=== PATIENT | female | born 1930 | race African-American/Black ===

== ENCOUNTER 2017-11-06 19:03 | Emergency (ER) | payer SELFPAY ==
--- NOTE | 2017-11-06 19:55 | PDOC ---
Rapid Medical Evaluation Time Seen by Provider: 11/06/17 19:46 Medical Evaluation: Allergies Allergy/AdvReac Type Severity Reaction Status Date / Time No Known Allergies Allergy Verified 11/30/13 12:53 I have performed a brief in-person evaluation of this patient. The patient presents with a chief complaint of: low back pain, b/l shoulder pain for years. chronic pain that has worsened. Son also admits to increased dementia symptoms. Pertinent physical exam findings: patient appears very sleepy. I have ordered the following: UA/culture, labs The patient will proceed to the ED for further evaluation.
[2017-11-06 19:58] VITALS: TEMP 98.3; BMI 32.9
[2017-11-06 20:23] LABS: BASO % 0.5 % (0-2.0); EOS % 6.2 % (0-4.5); HEMOGLOBIN 12.2 GM/dL (10.7-15.3); LYMPH % 23.2 % (8-40); MCHC 34.8 g/dl (32.0-36.0); MEAN CELL VOLUME 83.3 fl (80-96); MEAN PLT VOLUME 9.5 fl (7.5-11.1); MONO % 11.9 % (3.8-10.2); NEUT % 58.2 % (42.8-82.8); PLATELET COUNT 259 K/MM3 (134-434); RDW 14.7 % (11.6-15.6); WHITE BLOOD COUNT 6.8 K/mm3 (4.0-10.0)
[2017-11-06 21:00] LABS: ANION GAP 4 (8-16); BILIRUBIN,TOTAL 0.2 mg/dL (0.2-1.0); BLOOD UREA NITROGEN 39 mg/dL (7-18); CALCIUM 9.3 mg/dL (8.5-10.1); CHLORIDE 114 mmol/L (98-107); CO2 27 mmol/L (21-32); GLUCOSE,RANDOM 97 mg/dL (74-106); MAGNESIUM 2.9 mg/dL (1.8-2.4); POTASSIUM 4.8 mmol/L (3.5-5.1); SGOT/AST 40 U/L (15-37); SGPT/ALT 28 U/L (12-78); SODIUM 145 mmol/L (136-145)
[2017-11-06 21:01] LABS: ALK PHOS 182 U/L (45-117)
[2017-11-06 21:13] VITALS: BP 154/80; PULSE 67
[2017-11-06 21:19] LABS: URINE APPEARANCE CLEAR; URINE BILIRUBIN NEGATIVE (<2.0 mg/dL); URINE BLOOD 1+ (NEGATIVE); URINE COLOR STRAW; URINE GLUCOSE (UA) NEGATIVE (NEGATIVE); URINE KETONE NEGATIVE (NEGATIVE); URINE LEUK ESTERASE 1+ (NEGATIVE); URINE NITRITE NEGATIVE (NEGATIVE); URINE PROTEIN 1+ (NEGATIVE); URINE UROBILINOGEN NEGATIVE mg/dL (0.2-1.0)
[2017-11-06 21:26] LABS: EPI CELLS RARE /HPF (FEW)
--- NOTE | 2017-11-06 21:45 | PDOC ---
History of Present Illness - General History Source: Patient, Family Exam Limitations: No Limitations - History of Present Illness Initial Comments: The patient is an 87 year old female, accompanied with her son, with a significant past medical history of arthritis, HTN, and Alzheimer's, and increasing dementia who presents to the emergency department for evaluation of shoulder, lower back, knee, and ankle pain and vaginal discomfort. The patients family member reports the patient has had episodes of chronic pain in the aforementioned areas. The patient reports they have not been to a PCP for a long period of time. The patient reports associated symptom of headache. The patient denies chest pain, shortness of breath, and dizziness.The patients family member denies fevers, chills, nausea, vomiting, diarrhea, and constipation. Allergies: NKA Past surgical history: No record. Social history: Former smoker. No reported alcohol or drug use. <Hany Lloyd - Last Filed: 11/06/17 21:49> <Zenaida De Anda - Last Filed: 11/06/17 22:09> - General Chief Complaint: Pain Stated Complaint: PAIN Time Seen by Provider: 11/06/17 19:46 Past History <Hany Lloyd - Last Filed: 11/06/17 21:49> - Past Medical History CVA: Yes COPD: No Dementia: Yes (Alzheimer's) HTN: Yes Hypercholesterolemia: Yes Other medical history: Blind - Suicide/Smoking/Psychosocial Hx Smoking History: Never smoked Have you smoked in the past 12 months: No If you are a former smoker, when did you quit?: 30 yrs Information on smoking cessation initiated: No Hx Alcohol Use: No Drug/Substance Use Hx: No Substance Use Type: None Hx Substance Use Treatment: No <Zenaida De Anda - Last Filed: 11/06/17 22:09> - Past Medical History Allergies/Adverse Reactions: Allergies Allergy/AdvReac Type Severity Reaction Status Date / Time No Known Allergies Allergy Verified 11/06/17 19:54 Home Medications: Ambulatory Orders Aspirin [ASA -] 81 mg PO DAILY 11/30/13 Amlodipine Besylate [Norvasc -] 10 mg PO DAILY #30 tablet 12/02/13 Atorvastatin Ca [Lipitor -] 10 mg PO HS #30 tablet 12/02/13 Esr,Crp 12/02/13 Lipid 12/02/13 Meclizine HCl [Antivert -] 25 mg PO Q6H PRN #30 tablet 12/02/13 Review of Systems - Review of Systems Able to Perform ROS?: Yes Comments:: CONSTITUTIONAL: Absent: fever, chills, diaphoresis, generalized weakness, malaise, loss of appetite HEENT: Absent: rhinorrhea, nasal congestion, throat pain, throat swelling, difficulty swallowing, mouth swelling, ear pain, eye pain, visual Changes CARDIOVASCULAR: Absent: chest pain, syncope, palpitations, irregular heart rate, lightheadedness , peripheral edema RESPIRATORY: Absent: cough, shortness of breath, dyspnea with exertion, orthopnea, wheezing, stridor, hemoptysis GASTROINTESTINAL: Absent: abdominal pain, abdominal distension, nausea, vomiting, diarrhea, constipation, melena, hematochezia GENITOURINARY: Absent: dysuria, frequency, urgency, hesitancy, hematuria, flank pain, genital pain MUSCULOSKELETAL: (+)Back pain. (+)Shoulder pain. (+)Knee pain. (+)Ankle pain. Absent: myalgia, joint swelling SKIN: Absent: rash, itching, pallor HEMATOLOGIC/IMMUNOLOGIC: Absent: easy bleeding, easy bruising, lymphadenopathy, frequent infections ENDOCRINE: Absent: unexplained weight gain, unexplained weight loss, heat intolerance, cold intolerance NEUROLOGIC: Absent: headache, focal weakness or paresthesias, dizziness, seizure. PSYCHIATRIC: Absent: anxiety, depression, suicidal or homicidal ideation, hallucinations. <Hany Lloyd - Last Filed: 11/06/17 21:49> *Physical Exam - Vital Signs Last Vital Signs Temp Pulse Resp BP Pulse Ox 98.3 F 67 20 154/80 100 11/06/17 19:55 11/06/17 21:12 11/06/17 21:12 11/06/17 21:12 11/06/17 21:12 - Physical Exam Comments: GENERAL: Well developed, well nourished. No acute distress. HEENT: Normocephalic, atraumatic. PERRLA, EOMI. No conjunctival pallor. Sclera are non- icteric. NECK: Supple. Full ROM. No JVD. Carotid pulses 2+ and symmetric, without bruits. No thyromegaly. No lymphadenopathy. CARDIOVASCULAR: Regular rate and rhythm. No murmurs, rubs, or gallops. Distal pulses are 2+ and symmetric. PULMONARY: No evidence of respiratory distress. Lungs clear to auscultation bilaterally. No wheezing, rales or rhonchi. ABDOMINAL: Soft. Non-tender. Non-distended. No rebound or guarding. No organomegaly. Normoactive bowel sounds. MUSCULOSKELETAL Normal range of motion at all joints. No bony deformities or tenderness. No CVA tenderness. EXTREMITIES: (+)Pedal edema. No cyanosis. No clubbing. No calf tenderness. SKIN: Warm and dry. Normal capillary refill. No rashes. No jaundice. NEUROLOGICAL: Alert, awake, appropriate. Cranial nerves 2-12 intact. No deficits to light touch and temperature in face, upper extremities and lower extremities. No motor deficits in the in face, upper extremities and lower extremities. Normoreflexic in the upper and lower extremities. PSYCHIATRIC: Cooperative. Good eye contact. Appropriate mood and affect. PELVIC EXAM- External genitalia normal without lesions. Vaginal vault is clear without blood or discharge. Cervix is long and closed. No cervical motion tenderness. Uterus is nontender and normal in size. Adnexa are nontender and without masses <Hany Lloyd - Last Filed: 11/06/17 21:49> - Vital Signs Last Vital Signs Temp Pulse Resp BP Pulse Ox 98.3 F 67 20 154/80 100 11/06/17 19:55 11/06/17 21:12 11/06/17 21:12 11/06/17 21:12 11/06/17 21:12 <Zenaida De Anda - Last Filed: 11/06/17 22:09> ED Treatment Course - LABORATORY CBC & Chemistry Diagram: 11/06/17 20:15 11/06/17 20:15 - ADDITIONAL ORDERS Additional order review: Laboratory Results 11/06/17 11/06/17 21:05 20:15 Sodium 145 Potassium 4.8 Chloride 114 H Carbon Dioxide 27 Anion Gap 4 L BUN 39 H Creatinine 3.0 H Creat Clearance w eGFR 14.83 Random Glucose 97 Calcium 9.3 Magnesium 2.9 H Total Bilirubin 0.2 D AST 40 H ALT 28 Alkaline Phosphatase 182 H Total Protein 8.0 Albumin 4.0 Urine Color Straw Urine Appearance Clear Urine pH 8.0 D Ur Specific [place] 1.009 Urine Protein 1+ H Urine Glucose (UA) Negative Urine Ketones Negative Urine Blood 1+ H Urine Nitrite Negative Urine Bilirubin Negative Urine Urobilinogen Negative Ur Leukocyte Esterase 1+ H Urine WBC (Auto) <1 Urine RBC (Auto) <1 Ur Epithelial Cells Rare 11/06/17 20:15 RBC 4.20 MCV 83.3 MCHC 34.8 RDW 14.7 MPV 9.5 Neutrophils % 58.2 D Lymphocytes % 23.2 D Monocytes % 11.9 H Eosinophils % 6.2 H Basophils % 0.5 <Hany Lloyd - Last Filed: 11/06/17 21:49> - LABORATORY CBC & Chemistry Diagram: 11/06/17 20:15 11/06/17 20:15 - ADDITIONAL ORDERS Additional order review: Laboratory Results 11/06/17 11/06/17 21:05 20:15 Sodium 145 Potassium 4.8 Chloride 114 H Carbon Dioxide 27 Anion Gap 4 L BUN 39 H Creatinine 3.0 H Creat Clearance w eGFR 14.83 Random Glucose 97 Calcium 9.3 Magnesium 2.9 H Total Bilirubin 0.2 D AST 40 H ALT 28 Alkaline Phosphatase 182 H Total Protein 8.0 Albumin 4.0 Urine Color Straw Urine Appearance Clear Urine pH 8.0 D Ur Specific [place] 1.009 Urine Protein 1+ H Urine Glucose (UA) Negative Urine Ketones Negative Urine Blood 1+ H Urine Nitrite Negative Urine Bilirubin Negative Urine Urobilinogen Negative Ur Leukocyte Esterase 1+ H Urine WBC (Auto) <1 Urine RBC (Auto) <1 Ur Epithelial Cells Rare 11/06/17 20:15 RBC 4.20 MCV 83.3 MCHC 34.8 RDW 14.7 MPV 9.5 Neutrophils % 58.2 D Lymphocytes % 23.2 D Monocytes % 11.9 H Eosinophils % 6.2 H Basophils % 0.5 <Zenaida De Anda - Last Filed: 11/06/17 22:09> Medical Decision Making - Medical Decision Making 11/06/17 21:55 87-year-old female brought in by her son for worsening dementia, joint pain involving her back, shoulders, her knees or ankles that's brrn chronic -Is also concerned about some vaginal yeast infection because of the patient's complaints of dysuria Past surgical history-. 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 CBC was reviewed leukocytosis and no anemia chemistry reviewed all the electrolytes are within normal limits and the exception is her bun of 39. her creatinine of 3 and she already has a history of chronic renal insufficiency. urinalysis was negative for any infection Impression chronic joint pain, dementia, chronic renal insufficiency Plan Given Copies of the Patient's Labs and Discharged Patient Home <Zenaida De Anda - Last Filed: 11/06/17 22:09> *DC/Admit/Observation/Transfer - Attestations Scribe Attestion: Documentation prepared by Hany Lloyd, acting as manager medical writing for Zenaida De Anda MD. <Hany Lloyd - Last Filed: 11/06/17 21:49> <Zenaida De Anda - Last Filed: 11/06/17 22:09> Diagnosis at time of Disposition: Chronic joint pain Dementia Qualifiers: Dementia type: unspecified type Dementia behavioral disturbance: without behavioral disturbance Qualified Code(s): F03.90 - Unspecified dementia without behavioral disturbance Chronic renal insufficiency Qualifiers: Chronic kidney disease stage: unspecified stage Qualified Code(s): N18.9 - Chronic kidney disease, unspecified Hypertension Qualifiers: Hypertension type: unspecified Qualified Code(s): I10 - Essential (primary) hypertension - Discharge Dispostion Disposition: HOME Condition at time of disposition: Stable - Referrals Referrals: Luz Maria Dugan [Staff Physician] - Manuel Luna MD [Staff Physician] - Juliann Virgen MD [Staff Physician] - - Patient Instructions Printed Discharge Instructions: DI for Kidney Failure, DI for High Blood Pressure, DI for Alzheimer's Disease, DI for Joint Pain Additional Instructions: please followup with your kidney doctor and you also need a regular physician to help with her dementia
[2017-11-06] MEDS ORDERED: FLUCONAZOLE 100 MG TABLET (UD) PO ONE (21:46)
[2017-11-06] MEDS ORDERED: FLUCONAZOLE 100 MG TABLET (UD) ONE (21:48)
[2017-11-06] MEDS ORDERED: ACETAMINOPHEN 500 MG TABLET (FP) PO STA (22:19)
[2017-11-06] MEDS ORDERED: ACETAMINOPHEN 325 MG TABLET (FP) ONE (22:19)
== END 2017-11-06 22:13 | disposition home or self-care (01) ==
LOC: JER 19:03
DX: M54.5 Low back pain (principal); M25.511 Pain in right shoulder; M25.512 Pain in left shoulder; M25.561 Pain in right knee; M25.562 Pain in left knee; I12.9 Hypertensive chronic kidney disease with stage 1 through stage 4 chronic kidney disease, or unspecified chronic kidney disease; N18.9 Chronic kidney disease, unspecified; G30.8 Other Alzheimer's disease; F02.80 Dementia in other diseases classified elsewhere, unspecified severity, without behavioral disturbance, psychotic disturbance, mood disturbance, and anxiety; M12.9 Arthropathy, unspecified
CPT/HCPCS: 36415; 80053; 81003; 81015; 83735; 85025; 87086; 99283-25

== ENCOUNTER 2020-08-29 13:32 | Inpatient (IN) | payer OTHER ==
[2020-08-29 13:51] VITALS: BMI 23.1
[2020-08-29 14:03] LABS: BASO % 0.2 % (0-2.0); EOS % 0.9 % (0-4.5); HEMATOCRIT 36.9 % (32.4-45.2); HEMOGLOBIN 11.8 GM/dL (10.7-15.3); LYMPH % 10.6 % (8-40); MCH 27.6 pg (25.7-33.7); MCHC 31.9 g/dl (32.0-36.0); MEAN CELL VOLUME 86.6 fl (80-96); MEAN PLT VOLUME 12.3 fl (7.5-11.1); MONO % 7.6 % (3.8-10.2); NEUT % 80.7 % (42.8-82.8); PLATELET COUNT 109 K/MM3 (134-434); RBC 4.26 M/mm3 (3.60-5.2); RDW 16.7 % (11.6-15.6); WHITE BLOOD COUNT 25.6 K/mm3 (4.0-10.0)
[2020-08-29 14:04] LABS: VENOUS BASE EXCESS -8.4 mmol/L (-2-2); VENOUS O2 SATURATION 51.7 % (70-80); VENOUS PCO2 48.7 mmHg (38-52); VENOUS PH 7.216 (7.310-7.410)
[2020-08-29 14:09] LABS: INR 0.97 (0.83-1.09); PROTHROMBIN TIME (PATIENT) 11.7 SEC (9.7-13.0)
[2020-08-29 14:11] LABS: ACTIVATED PTT 29.4 SECONDS (25.2-36.5)
[2020-08-29 14:30] LABS: CALCIUM 9.2 mg/dL (8.5-10.1)
[2020-08-29 14:31] LABS: ALBUMIN 2.9 g/dl (3.4-5.0)
[2020-08-29 14:36] LABS: BILIRUBIN,TOTAL 0.4 mg/dL (0.2-1); TOT PROT 7.8 g/dl (6.4-8.2)
[2020-08-29 14:43] LABS: BLOOD UREA NITROGEN 215.3 mg/dL (7-18); CREATININE 14.8 mg/dL (0.55-1.3); POTASSIUM 6.9 mmol/L (3.5-5.1)
[2020-08-29] MEDS ORDERED: LACTATED RINGERS SOLUTION 1000 ML INFUS.BAG IV ONE (14:46)
[2020-08-29 15:19] LABS: BILIRUBIN,DIRECT 0.1 mg/dL (0.0-0.2)
[2020-08-29 15:34] LABS: ARTERIAL BLD GAS O2 SATURATION 99.7 mmHg (95-98); ARTERIAL BLOOD GAS BASE EXCESS -7.6 mmol/L (-2-2); ARTERIAL BLOOD GAS PO2 338.2 mmHg (80-100); ARTERIAL BLOOD GAS pH 7.348 (7.350-7.450)
[2020-08-29 15:35] LABS: ALLENS TEST POSITIVE
[2020-08-29] MEDS ORDERED: SODIUM CHLORIDE 0.9% 500 ML INFUS.BAG IV ONE (15:37)
[2020-08-29 16:05] LABS: EPI CELLS 26 /uL (0-25.1); HYALINE CASTS 1 /uL (0-3.1); URINE APPEARANCE CLEAR; URINE BACTERIA 150 /uL (0-1359); URINE BILIRUBIN NEGATIVE (NEGATIVE); URINE COLOR DK YELLOW; URINE GLUCOSE (UA) NEGATIVE (NEGATIVE); URINE KETONE TRACE (NEGATIVE); URINE LEUK ESTERASE TRACE (NEGATIVE); URINE NITRITE NEGATIVE (NEGATIVE); URINE PROTEIN 1+ (NEGATIVE); URINE RBC 16 /uL (0-23.9); URINE UROBILINOGEN 0.2 mg/dL (0.2-1.0); URINE WBC 11 /uL (0-25.8)
[2020-08-29 18:03] LABS: PLATELET ESTIMATE DECREASED
[2020-08-29 18:16] LABS: CALCIUM 8.6 mg/dL (8.5-10.1); POTASSIUM 5.6 mmol/L (3.5-5.1)
[2020-08-29 18:17] LABS: CREATININE 14.1 mg/dL (0.55-1.3)
[2020-08-29] MEDS ORDERED: LACTATED RINGERS SOLUTION 1,000 ML/1,000 ML INFUS.BAG IV SCH (18:30)
[2020-08-29] MEDS ORDERED: DEXTROSE 5%-WATER - 1,000 ML IV SCH (18:45)
[2020-08-29] MEDS ORDERED: SODIUM CHLORIDE 0.45% 1,000 ML IV SCH (18:45)
[2020-08-29] MEDS ORDERED: DEXTROSE 5%-WATER - 1,000 ML IV ONE (18:48)
[2020-08-29 22:09] LABS: POTASSIUM 5.7 mmol/L (3.5-5.1)
[2020-08-29 22:10] LABS: CALCIUM 8.8 mg/dL (8.5-10.1)
[2020-08-29 22:29] LABS: BLOOD UREA NITROGEN 207.7 mg/dL (7-18); CREATININE 14.6 mg/dL (0.55-1.3)
[2020-08-30] MEDS ORDERED: PIPERACILLIN/TAZOB 3.375 GM 3.375 GM/50 ML BAG IVPB ONE (00:16)
[2020-08-30] MEDS: PIPERACILLIN/TAZOB 3.375 GM 3.375 GM in DEXTROSE 5%-WATER - 50 ML IVPB SCH ×2 (00:20→05:23)
[2020-08-30] MEDS ORDERED: PROPOFOL 200 MG/20 ML VIAL IVPUSH ONE (00:20)
[2020-08-30] MEDS: DEXTROSE 5%-WATER - 1,000 ML IV SCH ×2 (02:17→18:53)
[2020-08-30 07:25] LABS: BASO % 0.2 % (0-2.0); EOS % 1.9 % (0-4.5); HEMATOCRIT 33.8 % (32.4-45.2); HEMOGLOBIN 10.5 GM/dL (10.7-15.3); LYMPH % 8.9 % (8-40); MCH 27.2 pg (25.7-33.7); MCHC 31.1 g/dl (32.0-36.0); MEAN CELL VOLUME 87.4 fl (80-96); MONO % 6.8 % (3.8-10.2); NEUT % 82.2 % (42.8-82.8); PLATELET COUNT 84 K/MM3 (134-434); RBC 3.87 M/mm3 (3.60-5.2); WHITE BLOOD COUNT 20.2 K/mm3 (4.0-10.0)
[2020-08-30 07:30] LABS: POTASSIUM 5.2 mmol/L (3.5-5.1)
[2020-08-30 07:31] LABS: CALCIUM 8.8 mg/dL (8.5-10.1)
[2020-08-30 08:17] LABS: BLOOD UREA NITROGEN 217.8 mg/dL (7-18)
[2020-08-30 08:18] LABS: CREATININE 14.6 mg/dL (0.55-1.3)
[2020-08-30 08:52] LABS: ANISOCYTOSIS 1+; MACROCYTOSIS 0; PLATELET ESTIMATE DECREASED
[2020-08-30] MEDS ORDERED: PIPERACILLIN/TAZOB 2.25 GM 2.25 GM in DEXTROSE 5%-WATER - 50 ML IVPB SCH (10:00)
[2020-08-30] MEDS ORDERED: PIPERACILLIN/TAZOB 2.25 GM 2.25 GM/50 ML BAG IVPB ONE (10:26)
[2020-08-30] MEDS ORDERED: HEPARIN NA (PORCINE) 5,000 UNITS/ML 1ML VIAL ONE (10:27)
[2020-08-30] MEDS: HEPARIN NA (PORCINE) 5,000 UNITS/ML 1ML VIAL SQ SCH ×2 (10:50→21:46)
[2020-08-30 14:49] LABS: EPI CELLS >36 /uL (0-25.1); HYALINE CASTS 6 /uL (0-3.1); URINE APPEARANCE TURBID; URINE BACTERIA 1601 /uL (0-1359); URINE BILIRUBIN NEGATIVE (NEGATIVE); URINE COLOR YELLOW; URINE GLUCOSE (UA) NEGATIVE (NEGATIVE); URINE KETONE NEGATIVE (NEGATIVE); URINE LEUK ESTERASE 3+ (NEGATIVE); URINE NITRITE NEGATIVE (NEGATIVE); URINE PROTEIN 2+ (NEGATIVE); URINE RBC 226 /uL (0-23.9); URINE UROBILINOGEN 0.2 mg/dL (0.2-1.0); URINE WBC 1523 /uL (0-25.8)
[2020-08-30 19:15] LABS: POTASSIUM 5.1 mmol/L (3.5-5.1)
[2020-08-30 19:16] LABS: CALCIUM 8.9 mg/dL (8.5-10.1)
[2020-08-30 19:31] LABS: BLOOD UREA NITROGEN 207.1 mg/dL (7-18); CREATININE 14.5 mg/dL (0.55-1.3)
[2020-08-30] MEDS ORDERED: DEXTROSE 5%-0.45% SALINE 1,000 ML IV SCH (20:30)
[2020-08-31] MEDS ORDERED: PIPERACILLIN/TAZOB 2.25 GM 2.25 GM in DEXTROSE 5%-WATER - 50 ML IVPB SCH (02:00)
[2020-08-31 10:25] LABS: ALBUMIN 2.8 g/dl (3.4-5.0); CALCIUM 8.6 mg/dL (8.5-10.1)
[2020-08-31 10:28] LABS: BILIRUBIN,TOTAL 0.3 mg/dL (0.2-1); TOT PROT 6.7 g/dl (6.4-8.2)
[2020-08-31 10:46] LABS: BLOOD UREA NITROGEN 208.4 mg/dL (7-18); CREATININE 15.2 mg/dL (0.55-1.3); POTASSIUM 6.1 mmol/L (3.5-5.1)
[2020-08-31] MEDS ORDERED: DEXTROSE 50%-WATER - 25 GM/50 ML VIAL IVPUSH ONE ×2 (11:40→12:15)
[2020-08-31] MEDS ORDERED: SODIUM BICARBONATE 8.4% 50 MEQ/50 ML VIAL ONE (11:56)
[2020-08-31] MEDS ORDERED: DEXTROSE 50%-WATER - 25 GM/50 ML VIAL ONE (11:56)
[2020-08-31] MEDS ORDERED: ALBUTEROL SO4 0.083% IH SOL 2.5 MG/3 ML VIAL.NEB. NEB ONE ×2 (11:57→12:15)
[2020-08-31] MEDS ORDERED: INSULIN REGULAR HUMAN 100 UNITS/ML *VIAL ONE (11:57)
[2020-08-31] MEDS ORDERED: INSULIN REGULAR HUMAN 100 UNITS/ML *VIAL IVPUSH ONE (12:00)
[2020-08-31] MEDS ORDERED: SODIUM ZIRCONIUM CYCLOSILICATE (LOKELMA) 10 GM PACKET PO ONE (12:15)
[2020-08-31] MEDS ORDERED: SODIUM BICARBONATE 8.4% 50 MEQ/50 ML VIAL IVPB ONE (12:15)
[2020-08-31] MEDS ORDERED: CALCIUM GLUCONATE 10% - 1,000 MG/10 ML VIAL IVPUSH ONE (12:15)
[2020-08-31] MEDS: HEPARIN NA (PORCINE) 5,000 UNITS/ML 1ML VIAL SQ SCH ×2 (12:37→21:01)
[2020-08-31] MEDS ORDERED: SODIUM CHLORIDE 0.45% 1,000 ML IV SCH (13:30)
[2020-08-31] MEDS ORDERED: DEXTROSE 5%-WATER - 1,000 ML IV SCH (17:00)
[2020-09-01] MEDS: HEPARIN NA (PORCINE) 5,000 UNITS/ML 1ML VIAL SQ SCH ×2 (09:24→22:12)
[2020-09-01 11:39] LABS: HEMATOCRIT 34.7 % (32.4-45.2); HEMOGLOBIN 11.4 GM/dL (10.7-15.3); MCH 27.5 pg (25.7-33.7); MCHC 32.9 g/dl (32.0-36.0); MEAN CELL VOLUME 83.5 fl (80-96); MEAN PLT VOLUME 11.4 fl (7.5-11.1); PLATELET COUNT 103 K/MM3 (134-434); RBC 4.15 M/mm3 (3.60-5.2); RDW 16.3 % (11.6-15.6)
[2020-09-01 11:44] LABS: POTASSIUM 4.4 mmol/L (3.5-5.1)
[2020-09-01 11:47] LABS: CALCIUM 8.7 mg/dL (8.5-10.1)
[2020-09-01 11:48] LABS: ALBUMIN 2.8 g/dl (3.4-5.0)
[2020-09-01 11:52] LABS: BILIRUBIN,TOTAL 0.4 mg/dL (0.2-1)
[2020-09-01 11:53] LABS: TOT PROT 6.7 g/dl (6.4-8.2)
[2020-09-01 12:10] LABS: BLOOD UREA NITROGEN 181.4 mg/dL (7-18); CREATININE 14.9 mg/dL (0.55-1.3)
[2020-09-01] MEDS ORDERED: DEXTROSE 5%-WATER - 1,000 ML IV SCH (12:11)
[2020-09-01] MEDS: MIRTAZAPINE 15 MG TABLET (FP) PO SCH (13:27)
[2020-09-02] MEDS: HEPARIN NA (PORCINE) 5,000 UNITS/ML 1ML VIAL SQ SCH ×2 (09:15→21:42)
[2020-09-02] MEDS: MIRTAZAPINE 15 MG TABLET (FP) PO SCH (09:15)
[2020-09-02 12:31] LABS: POTASSIUM 3.8 mmol/L (3.5-5.1)
[2020-09-02 12:33] LABS: CALCIUM 7.6 mg/dL (8.5-10.1)
[2020-09-02 12:34] LABS: ALBUMIN 2.4 g/dl (3.4-5.0)
[2020-09-02 12:38] LABS: BILIRUBIN,TOTAL 0.5 mg/dL (0.2-1); TOT PROT 6.4 g/dl (6.4-8.2)
[2020-09-02 12:46] LABS: BLOOD UREA NITROGEN 170.1 mg/dL (7-18)
[2020-09-02] MEDS: ZINC OXIDE 20% TOPICAL OINTMENT 30 GM TUBE TP SCH ×2 (18:28→21:43)
[2020-09-02] MEDS: DEXTROSE 5%-NORMAL SALINE 1,000 ML IV SCH (18:29)
[2020-09-02] MEDS: OLANZapine 5 MG TABLET PO SCH (21:48)
[2020-09-03 08:59] LABS: BASO % 0.1 % (0-2.0); HEMATOCRIT 30.8 % (32.4-45.2); HEMOGLOBIN 10.3 GM/dL (10.7-15.3); LYMPH % 11.1 % (8-40); MCH 27.9 pg (25.7-33.7); MCHC 33.5 g/dl (32.0-36.0); MEAN CELL VOLUME 83.2 fl (80-96); MEAN PLT VOLUME 11.4 fl (7.5-11.1); MONO % 9.7 % (3.8-10.2); NEUT % 77.1 % (42.8-82.8); PLATELET COUNT 116 K/MM3 (134-434); RDW 15.8 % (11.6-15.6); WHITE BLOOD COUNT 11.9 K/mm3 (4.0-10.0)
[2020-09-03 09:21] LABS: POTASSIUM 3.6 mmol/L (3.5-5.1)
[2020-09-03] MEDS: ZINC OXIDE 20% TOPICAL OINTMENT 30 GM TUBE TP SCH ×2 (09:21→22:04)
[2020-09-03] MEDS: HEPARIN NA (PORCINE) 5,000 UNITS/ML 1ML VIAL SQ SCH ×2 (09:21→22:04)
[2020-09-03 09:35] LABS: CALCIUM 7.3 mg/dL (8.5-10.1)
[2020-09-03 09:36] LABS: ALBUMIN 2.5 g/dl (3.4-5.0)
[2020-09-03 09:41] LABS: BILIRUBIN,TOTAL 0.6 mg/dL (0.2-1); TOT PROT 6.2 g/dl (6.4-8.2)
[2020-09-03 09:52] LABS: BLOOD UREA NITROGEN 151.2 mg/dL (7-18); CREATININE 12.9 mg/dL (0.55-1.3)
[2020-09-03] MEDS: DEXTROSE 5%-0.45% SALINE 1,000 ML IV SCH (17:04)
[2020-09-03] MEDS: OLANZapine 5 MG TABLET PO SCH (22:04)
[2020-09-04] MEDS: HEPARIN NA (PORCINE) 5,000 UNITS/ML 1ML VIAL SQ SCH ×2 (10:42→23:06)
[2020-09-04] MEDS: ZINC OXIDE 20% TOPICAL OINTMENT 30 GM TUBE TP SCH ×2 (10:42→23:06)
[2020-09-04] MEDS: DEXTROSE 5%-NORMAL SALINE 1,000 ML IV SCH (13:02)
[2020-09-04] MEDS ORDERED: ACETAMINOPHEN 1000 MG/100 ML VIAL (NON FORMULARY) IVPB PRN (15:41)
[2020-09-04] MEDS: DEXTROSE 5%-0.45% SALINE 1,000 ML IV SCH (16:02)
[2020-09-04] MEDS: hydrALAZINE HCL 20 MG/ML VIAL IVPUSH PRN (18:24)
[2020-09-04] MEDS: OLANZapine 5 MG TABLET PO SCH ×2 (23:06→23:16)
[2020-09-05] MEDS: DEXTROSE 5%-0.45% SALINE 1,000 ML IV SCH ×2 (07:30→13:45)
[2020-09-05] MEDS: HEPARIN NA (PORCINE) 5,000 UNITS/ML 1ML VIAL SQ SCH ×2 (09:28→21:14)
[2020-09-05] MEDS: ZINC OXIDE 20% TOPICAL OINTMENT 30 GM TUBE TP SCH ×2 (09:29→21:15)
[2020-09-05 10:04] LABS: POTASSIUM 3.2 mmol/L (3.5-5.1)
[2020-09-05 10:12] LABS: CALCIUM 7.1 mg/dL (8.5-10.1)
[2020-09-05 10:28] LABS: BLOOD UREA NITROGEN 135.1 mg/dL (7-18)
[2020-09-05] MEDS: DEXTROSE 5%-LACTATED RINGERS 1,000 ML IV SCH ×2 (12:54→21:12)
[2020-09-05] MEDS: hydrALAZINE HCL 20 MG/ML VIAL IVPUSH PRN (12:55)
[2020-09-05] MEDS: NIFEdipine E.R. 90 MG TABLET PO SCH (16:35)
[2020-09-05] MEDS: OLANZapine 5 MG TABLET PO SCH (21:15)
[2020-09-06] MEDS: DEXTROSE 5%-LACTATED RINGERS 1,000 ML IV SCH ×2 (05:20→13:29)
[2020-09-06] MEDS: hydrALAZINE HCL 20 MG/ML VIAL IVPUSH PRN ×2 (05:50→22:23)
[2020-09-06] MEDS: ZINC OXIDE 20% TOPICAL OINTMENT 30 GM TUBE TP SCH ×2 (10:00→21:37)
[2020-09-06 11:41] LABS: BASO % 0.1 % (0-2.0); EOS % 1.3 % (0-4.5); HEMATOCRIT 26.1 % (32.4-45.2); HEMOGLOBIN 8.8 GM/dL (10.7-15.3); MCH 27.5 pg (25.7-33.7); MCHC 33.7 g/dl (32.0-36.0); MEAN CELL VOLUME 81.5 fl (80-96); MONO % 5.8 % (3.8-10.2); NEUT % 81.8 % (42.8-82.8); PLATELET COUNT 167 K/MM3 (134-434); RDW 15.7 % (11.6-15.6)
[2020-09-06 12:11] LABS: POTASSIUM 3.3 mmol/L (3.5-5.1)
[2020-09-06 12:13] LABS: MAGNESIUM 1.9 mg/dL (1.8-2.4)
[2020-09-06] MEDS: NIFEdipine E.R. 90 MG TABLET PO SCH (12:14)
[2020-09-06 12:17] LABS: PHOSPHOROUS 6.4 mg/dL (2.5-4.9)
[2020-09-06 12:18] LABS: BILIRUBIN,TOTAL 0.3 mg/dL (0.2-1); TOT PROT 5.3 g/dl (6.4-8.2)
[2020-09-06 12:25] LABS: BLOOD UREA NITROGEN 117.2 mg/dL (7-18); CALCIUM 6.9 mg/dL (8.5-10.1); CREATININE 9.9 mg/dL (0.55-1.3)
[2020-09-06] MEDS ORDERED: DEXTROSE 5%-1/3 NS - 500 ML IV SCH (14:15)
[2020-09-06] MEDS: KCL 10 MEQ IVPB 10 MEQ/100 ML INFUS.BAG IVPB SCH ×2 (14:30→17:04)
[2020-09-06] MEDS: OLANZapine 5 MG TABLET PO SCH (21:37)
[2020-09-06] MEDS ORDERED: ACETAMINOPHEN 1000 MG/100 ML VIAL (NON FORMULARY) IVPB ONE (22:23)
[2020-09-07 11:23] LABS: ALBUMIN 2.1 g/dl (3.4-5.0); CALCIUM 7.3 mg/dL (8.5-10.1)
[2020-09-07 11:28] LABS: TOT PROT 5.6 g/dl (6.4-8.2)
[2020-09-07] MEDS: ZINC OXIDE 20% TOPICAL OINTMENT 30 GM TUBE TP SCH ×2 (11:31→21:14)
[2020-09-07] MEDS: NIFEdipine E.R. 90 MG TABLET PO SCH (11:31)
[2020-09-07 11:37] LABS: BILIRUBIN,TOTAL 0.3 mg/dL (0.2-1); POTASSIUM 3.6 mmol/L (3.5-5.1)
[2020-09-07 11:56] LABS: BLOOD UREA NITROGEN 109.5 mg/dL (7-18)
[2020-09-07 11:57] LABS: CREATININE 9.7 mg/dL (0.55-1.3)
[2020-09-07] MEDS ORDERED: MORPHINE SULFATE 2 MG/ML VIAL SQ ONE (12:27)
[2020-09-07] MEDS ORDERED: DEXTROSE 5%-WATER - 1,000 ML IV SCH (12:45)
[2020-09-07] MEDS ORDERED: KCL 10 MEQ IVPB 10 MEQ/100 ML INFUS.BAG IVPB SCH (13:00)
[2020-09-07] MEDS ORDERED: SODIUM BICARBONATE 8.4% 50 MEQ/50 ML DISP.SYRIN IVPUSH ONE (13:00)
[2020-09-07] MEDS: SODIUM BICARBONATE 8.4% - 50 MEQ in DEXTROSE 5%-WATER - 1,000 ML IV SCH (14:58)
[2020-09-07] MEDS: OLANZapine 5 MG TABLET PO SCH (21:15)
[2020-09-08] MEDS: SODIUM BICARBONATE 8.4% - 50 MEQ in DEXTROSE 5%-WATER - 1,000 ML IV SCH ×3 (00:41→20:40)
[2020-09-08 07:42] LABS: POTASSIUM 3.5 mmol/L (3.5-5.1)
[2020-09-08 07:51] LABS: ALBUMIN 2.1 g/dl (3.4-5.0); CALCIUM 7.4 mg/dL (8.5-10.1)
[2020-09-08 07:54] LABS: BILIRUBIN,TOTAL 0.3 mg/dL (0.2-1); TOT PROT 5.6 g/dl (6.4-8.2)
[2020-09-08 08:25] LABS: BLOOD UREA NITROGEN 106.5 mg/dL (7-18); CREATININE 9.3 mg/dL (0.55-1.3)
[2020-09-08] MEDS ORDERED: KCL 10 MEQ IVPB 10 MEQ/100 ML INFUS.BAG IVPB SCH (10:00)
[2020-09-08] MEDS: HYDROmorphone HCl 2 MG/ML VIAL IVPUSH PRN ×2 (10:46→23:34)
[2020-09-08] MEDS: NIFEdipine E.R. 90 MG TABLET PO SCH (10:47)
[2020-09-08] MEDS: ZINC OXIDE 20% TOPICAL OINTMENT 30 GM TUBE TP SCH ×2 (10:47→21:14)
[2020-09-08] MEDS: OLANZapine 5 MG TABLET PO SCH (21:14)
[2020-09-08] MEDS ORDERED: ACETAMINOPHEN 1000 MG/100 ML VIAL (NON FORMULARY) IVPB PRN (23:09)
[2020-09-09] MEDS: hydrALAZINE HCL 20 MG/ML VIAL IVPUSH PRN (05:24)
[2020-09-09] MEDS: SODIUM BICARBONATE 8.4% - 50 MEQ in DEXTROSE 5%-WATER - 1,000 ML IV SCH ×2 (07:04→17:57)
[2020-09-09 09:48] LABS: POTASSIUM 3.3 mmol/L (3.5-5.1)
[2020-09-09 09:57] LABS: MAGNESIUM 1.7 mg/dL (1.8-2.4)
[2020-09-09 10:00] LABS: PHOSPHOROUS 6.5 mg/dL (2.5-4.9)
[2020-09-09 10:29] LABS: CALCIUM 7.1 mg/dL (8.5-10.1)
[2020-09-09 10:30] LABS: ALBUMIN 2.2 g/dl (3.4-5.0)
[2020-09-09 10:34] LABS: BILIRUBIN,TOTAL 0.3 mg/dL (0.2-1); TOT PROT 5.8 g/dl (6.4-8.2)
[2020-09-09] MEDS: NIFEdipine E.R. 90 MG TABLET PO SCH (10:57)
[2020-09-09] MEDS: ZINC OXIDE 20% TOPICAL OINTMENT 30 GM TUBE TP SCH ×2 (10:58→21:59)
[2020-09-09 11:22] LABS: CREATININE 8.5 mg/dL (0.55-1.3)
[2020-09-09] MEDS ORDERED: MAGNESIUM SULF 50% (8.12 MEQ/2 ML-1 GM VIAL) IVPB ONE (12:30)
[2020-09-09] MEDS: KCL 10 MEQ IVPB 10 MEQ/100 ML INFUS.BAG IVPB SCH ×3 (14:56→17:58)
[2020-09-09] MEDS: HYDROmorphone HCl 2 MG/ML VIAL IVPUSH PRN (17:56)
[2020-09-09] MEDS: OLANZapine 5 MG TABLET PO SCH (21:59)
[2020-09-10] MEDS: SODIUM BICARBONATE 8.4% - 50 MEQ in DEXTROSE 5%-WATER - 1,000 ML IV SCH ×2 (06:03→10:38)
[2020-09-10 07:39] LABS: HEMATOCRIT 22.8 % (32.4-45.2); HEMOGLOBIN 7.7 GM/dL (10.7-15.3); MCH 27.3 pg (25.7-33.7); MCHC 33.9 g/dl (32.0-36.0); MEAN CELL VOLUME 80.5 fl (80-96); MEAN PLT VOLUME 10.3 fl (7.5-11.1); PLATELET COUNT 262 K/MM3 (134-434); RBC 2.83 M/mm3 (3.60-5.2); RDW 15.9 % (11.6-15.6); WHITE BLOOD COUNT 11.6 K/mm3 (4.0-10.0)
[2020-09-10 08:55] LABS: POTASSIUM 3.9 mmol/L (3.5-5.1)
[2020-09-10 08:57] LABS: ALBUMIN 1.9 g/dl (3.4-5.0); CALCIUM 7.1 mg/dL (8.5-10.1)
[2020-09-10 08:58] LABS: BLOOD UREA NITROGEN 87.4 mg/dL (7-18)
[2020-09-10 09:02] LABS: TOT PROT 5.2 g/dl (6.4-8.2)
[2020-09-10 09:10] LABS: BILIRUBIN,TOTAL 1.4 mg/dL (0.2-1)
[2020-09-10 09:15] LABS: CREATININE 7.8 mg/dL (0.55-1.3)
[2020-09-10] MEDS: NIFEdipine E.R. 90 MG TABLET PO SCH (10:39)
[2020-09-10] MEDS: ZINC OXIDE 20% TOPICAL OINTMENT 30 GM TUBE TP SCH ×2 (10:39→21:59)
[2020-09-10] MEDS: AMINO ACIDS 4.25%/D5W 1,000 ML IV SCH (15:11)
[2020-09-10] MEDS: DEXTROSE 5%-WATER - 1,000 ML IV SCH (15:31)
[2020-09-10] MEDS: HYDROmorphone HCl 2 MG/ML VIAL IVPUSH PRN (18:06)
[2020-09-10] MEDS: OLANZapine 5 MG TABLET PO SCH (21:59)
[2020-09-11] MEDS: HYDROmorphone HCl 2 MG/ML VIAL IVPUSH PRN (08:26)
[2020-09-11] MEDS: NIFEdipine E.R. 90 MG TABLET PO SCH (09:13)
[2020-09-11] MEDS: ZINC OXIDE 20% TOPICAL OINTMENT 30 GM TUBE TP SCH ×2 (09:13→21:28)
[2020-09-11 13:29] LABS: POTASSIUM 3.4 mmol/L (3.5-5.1)
[2020-09-11 13:43] LABS: BLOOD UREA NITROGEN 87.4 mg/dL (7-18)
[2020-09-11 13:45] LABS: CREATININE 7.1 mg/dL (0.55-1.3)
[2020-09-11 13:47] LABS: TOT PROT 5.6 g/dl (6.4-8.2)
[2020-09-11 13:48] LABS: BILIRUBIN,TOTAL 0.3 mg/dL (0.2-1)
[2020-09-11 13:51] LABS: CALCIUM 6.9 mg/dL (8.5-10.1)
[2020-09-11] MEDS: DEXTROSE 5%-WATER - 1,000 ML IV SCH (14:05)
[2020-09-11] MEDS: AMINO ACIDS 4.25%/D5W 1,000 ML IV SCH (14:07)
[2020-09-11] MEDS: OLANZapine 5 MG TABLET PO SCH (21:23)
[2020-09-12] MEDS: NIFEdipine E.R. 90 MG TABLET PO SCH (09:36)
[2020-09-12] MEDS: ZINC OXIDE 20% TOPICAL OINTMENT 30 GM TUBE TP SCH ×2 (09:37→21:53)
[2020-09-12] MEDS: HYDROmorphone HCl 2 MG/ML VIAL IVPUSH PRN ×2 (12:48→21:52)
[2020-09-12] MEDS: AMINO ACIDS 4.25%/D5W 1,000 ML IV SCH (14:16)
[2020-09-12] MEDS: DEXTROSE 5%-WATER - 1,000 ML IV SCH (14:16)
[2020-09-12] MEDS: OLANZapine 5 MG TABLET PO SCH (21:54)
[2020-09-13] MEDS: NIFEdipine E.R. 90 MG TABLET PO SCH (09:12)
[2020-09-13] MEDS: ZINC OXIDE 20% TOPICAL OINTMENT 30 GM TUBE TP SCH ×2 (09:12→22:30)
[2020-09-13] MEDS: HYDROmorphone HCl 2 MG/ML VIAL IVPUSH PRN (09:20)
[2020-09-13 09:52] LABS: POTASSIUM 3.1 mmol/L (3.5-5.1)
[2020-09-13 10:10] LABS: BLOOD UREA NITROGEN 93.8 mg/dL (7-18); CALCIUM 7.3 mg/dL (8.5-10.1)
[2020-09-13 10:11] LABS: MAGNESIUM 1.6 mg/dL (1.8-2.4)
[2020-09-13 10:14] LABS: CREATININE 6.2 mg/dL (0.55-1.3)
[2020-09-13 10:15] LABS: PHOSPHOROUS 4.8 mg/dL (2.5-4.9)
[2020-09-13] MEDS: AMINO ACIDS 4.25%/D5W 1,000 ML IV SCH ×2 (14:52→17:36)
[2020-09-13] MEDS: DEXTROSE 5%-WATER - 1,000 ML IV SCH (14:53)
[2020-09-13] MEDS ORDERED: MAGNESIUM SULF 50% (8.12 MEQ/2 ML-1 GM VIAL) IVPB ONE (16:12)
[2020-09-13] MEDS: KCL 10 MEQ IVPB 10 MEQ/100 ML INFUS.BAG IVPB SCH ×3 (18:56→21:34)
[2020-09-13] MEDS: OLANZapine 5 MG TABLET PO SCH (22:29)
[2020-09-14] MEDS ORDERED: PT OWN MED DRAWER 7, Y5N ONE (09:02)
[2020-09-14 09:25] LABS: HEMATOCRIT 23.7 % (32.4-45.2); HEMOGLOBIN 8.3 GM/dL (10.7-15.3); MCHC 35.1 g/dl (32.0-36.0); MEAN CELL VOLUME 79.7 fl (80-96); MEAN PLT VOLUME 9.5 fl (7.5-11.1); PLATELET COUNT 316 K/MM3 (134-434); RBC 2.97 M/mm3 (3.60-5.2); RDW 16.1 % (11.6-15.6); WHITE BLOOD COUNT 9.9 K/mm3 (4.0-10.0)
[2020-09-14] MEDS: NIFEdipine E.R. 90 MG TABLET PO SCH ×2 (09:27→09:37)
[2020-09-14] MEDS: ZINC OXIDE 20% TOPICAL OINTMENT 30 GM TUBE TP SCH ×2 (09:27→22:32)
[2020-09-14 09:49] LABS: POTASSIUM 3.5 mmol/L (3.5-5.1)
[2020-09-14 10:00] LABS: ALBUMIN 1.9 g/dl (3.4-5.0)
[2020-09-14 10:02] LABS: CALCIUM 7.6 mg/dL (8.5-10.1); MAGNESIUM 2.1 mg/dL (1.8-2.4)
[2020-09-14 10:03] LABS: BLOOD UREA NITROGEN 98.7 mg/dL (7-18)
[2020-09-14 10:05] LABS: BILIRUBIN,TOTAL 0.3 mg/dL (0.2-1); CREATININE 5.8 mg/dL (0.55-1.3); TOT PROT 5.5 g/dl (6.4-8.2)
[2020-09-14 10:08] LABS: PHOSPHOROUS 4.7 mg/dL (2.5-4.9)
[2020-09-14] MEDS: AMINO ACIDS 4.25%/D5W 1,000 ML IV SCH (16:45)
[2020-09-14] MEDS ORDERED: HALOPERIDOL LACTATE 5 MG/ML IM ONE (17:25)
[2020-09-14] MEDS ORDERED: METOPROLOL TARTRATE 5 MG/5 ML VIAL IVPUSH SCH (17:30)
[2020-09-14] MEDS: hydrALAZINE HCL 20 MG/ML VIAL IVPUSH PRN (17:31)
[2020-09-14] MEDS: METOPROLOL TARTRATE 5 MG/5 ML VIAL IVPB SCH ×2 (18:29→21:49)
[2020-09-14] MEDS: OLANZapine 5 MG TABLET PO SCH (21:50)
[2020-09-15] MEDS: METOPROLOL TARTRATE 5 MG/5 ML VIAL IVPB SCH ×6 (01:45→22:35)
[2020-09-15] MEDS: AMINO ACIDS 4.25%/D5W 1,000 ML IV SCH ×3 (05:45→17:45)
[2020-09-15 09:52] LABS: POTASSIUM 3.5 mmol/L (3.5-5.1)
[2020-09-15 10:39] LABS: CALCIUM 8.1 mg/dL (8.5-10.1)
[2020-09-15] MEDS: NIFEdipine E.R. 90 MG TABLET PO SCH (10:41)
[2020-09-15 10:43] LABS: CREATININE 5.4 mg/dL (0.55-1.3)
[2020-09-15 10:53] LABS: BLOOD UREA NITROGEN 111.8 mg/dL (7-18)
[2020-09-15] MEDS: ZINC OXIDE 20% TOPICAL OINTMENT 30 GM TUBE TP SCH ×2 (12:02→22:43)
[2020-09-15] MEDS ORDERED: AMINO ACIDS 4.25%/D5W 1,000 ML IV SCH (12:13)
[2020-09-15] MEDS ORDERED: hydrALAZINE HCL 20 MG/ML VIAL IVPB PRN (12:46)
[2020-09-15] MEDS: PANTOPRAZOLE SODIUM 40 MG VIAL IVPUSH SCH (16:31)
[2020-09-15] MEDS: OLANZapine 5 MG TABLET PO SCH (22:43)
[2020-09-15] MEDS ORDERED: ACETAMINOPHEN 325 MG TABLET (FP) PO ONE (22:58)
[2020-09-15] MEDS ORDERED: ACETAMINOPHEN 1000 MG/100 ML VIAL (NON FORMULARY) IVPB ONE ×2 (23:45→23:47)
[2020-09-16 00:31] LABS: EPI CELLS >36 /uL (0-25.1); HYALINE CASTS 9 /uL (0-3.1); PH,URINE >= 9.0 (5.0-8.0); URINE APPEARANCE TURBID; URINE BACTERIA >9,000 /uL (0-1359); URINE BILIRUBIN NEGATIVE (NEGATIVE); URINE COLOR YELLOW; URINE GLUCOSE (UA) NEGATIVE (NEGATIVE); URINE KETONE NEGATIVE (NEGATIVE); URINE LEUK ESTERASE 3+ (NEGATIVE); URINE NITRITE NEGATIVE (NEGATIVE); URINE PROTEIN 1+ (NEGATIVE); URINE UROBILINOGEN 0.2 mg/dL (0.2-1.0); URINE WBC 8718 /uL (0-25.8)
[2020-09-16 00:33] LABS: HEMATOCRIT 23.6 % (32.4-45.2); HEMOGLOBIN 7.9 GM/dL (10.7-15.3); MCH 26.8 pg (25.7-33.7); MCHC 33.4 g/dl (32.0-36.0); MEAN CELL VOLUME 80.4 fl (80-96); MEAN PLT VOLUME 9.5 fl (7.5-11.1); PLATELET COUNT 318 K/MM3 (134-434); RBC 2.93 M/mm3 (3.60-5.2); RDW 15.9 % (11.6-15.6); WHITE BLOOD COUNT 12.1 K/mm3 (4.0-10.0)
[2020-09-16] MEDS: AMINO ACIDS 4.25%/D5W 1,000 ML IV SCH ×2 (01:08→13:54)
[2020-09-16 02:06] LABS: URINE RBC 32.3 /uL (0-23.9); YEAST NONE SEEN (NEGATIVE)
[2020-09-16 02:07] LABS: URINE CRYSTALS MANY /hpf
[2020-09-16] MEDS: METOPROLOL TARTRATE 5 MG/5 ML VIAL IVPB SCH ×6 (02:57→22:23)
[2020-09-16 09:33] LABS: POTASSIUM 3.6 mmol/L (3.5-5.1)
[2020-09-16 09:36] LABS: CALCIUM 8.1 mg/dL (8.5-10.1)
[2020-09-16 09:37] LABS: ALBUMIN 2.2 g/dl (3.4-5.0)
[2020-09-16 09:40] LABS: CREATININE 5.5 mg/dL (0.55-1.3)
[2020-09-16 09:41] LABS: BILIRUBIN,TOTAL 0.4 mg/dL (0.2-1)
[2020-09-16 09:42] LABS: TOT PROT 6.5 g/dl (6.4-8.2)
[2020-09-16] MEDS: PANTOPRAZOLE SODIUM 40 MG VIAL IVPUSH SCH (09:58)
[2020-09-16] MEDS: NIFEdipine E.R. 90 MG TABLET PO SCH (09:59)
[2020-09-16] MEDS: ZINC OXIDE 20% TOPICAL OINTMENT 30 GM TUBE TP SCH ×2 (09:59→22:23)
[2020-09-16 10:28] LABS: BLOOD UREA NITROGEN 112.8 mg/dL (7-18)
[2020-09-16] MEDS ORDERED: ACETAMINOPHEN 1000 MG/100 ML VIAL (NON FORMULARY) IVPB ONE ×2 (10:45→22:26)
[2020-09-16] MEDS ORDERED: VANCOMYCIN 1 GM in D5W (PRE-DOCKED) 1,000 MG/250 ML IVPB ONE (12:30)
[2020-09-16 13:25] LABS: BASO % 0.1 % (0-2.0); HEMATOCRIT 22.3 % (32.4-45.2); HEMOGLOBIN 7.4 GM/dL (10.7-15.3); LYMPH % 1.6 % (8-40); MCH 26.9 pg (25.7-33.7); MCHC 33.2 g/dl (32.0-36.0); MEAN PLT VOLUME 9.3 fl (7.5-11.1); MONO % 6.8 % (3.8-10.2); NEUT % 91.5 % (42.8-82.8); PLATELET COUNT 265 K/MM3 (134-434); RBC 2.76 M/mm3 (3.60-5.2); RDW 15.9 % (11.6-15.6)
[2020-09-16 13:30] LABS: WHITE BLOOD COUNT 33.9 K/mm3 (4.0-10.0)
[2020-09-16 13:46] LABS: POTASSIUM 3.1 mmol/L (3.5-5.1)
[2020-09-16 13:48] LABS: ALBUMIN 1.9 g/dl (3.4-5.0)
[2020-09-16 13:49] LABS: CALCIUM 7.8 mg/dL (8.5-10.1); MAGNESIUM 1.7 mg/dL (1.8-2.4)
[2020-09-16 13:52] LABS: CREATININE 5.5 mg/dL (0.55-1.3); PHOSPHOROUS 3.2 mg/dL (2.5-4.9)
[2020-09-16 13:53] LABS: BILIRUBIN,TOTAL 0.3 mg/dL (0.2-1); TOT PROT 5.8 g/dl (6.4-8.2)
[2020-09-16 14:39] LABS: ANISOCYTOSIS 2+; MACROCYTOSIS 0; PLATELET ESTIMATE NORMAL; TARGET CELLS 2+
[2020-09-16 14:45] LABS: BLOOD UREA NITROGEN 113.5 mg/dL (7-18)
[2020-09-16] MEDS ORDERED: MAGNESIUM SULF 50% (8.12 MEQ/2 ML-1 GM VIAL) IVPB ONE ×2 (16:17→21:00)
[2020-09-16] MEDS: KCL 10 MEQ IVPB 10 MEQ/100 ML INFUS.BAG IVPB SCH ×2 (18:44→23:40)
[2020-09-16] MEDS: OLANZapine 5 MG TABLET PO SCH (22:24)
[2020-09-17] MEDS: KCL 10 MEQ IVPB 10 MEQ/100 ML INFUS.BAG IVPB SCH (01:15)
[2020-09-17] MEDS ORDERED: KCL 10 MEQ IVPB 10 MEQ/100 ML INFUS.BAG IVPB SCH (01:15)
[2020-09-17] MEDS: AMINO ACIDS 4.25%/D5W 1,000 ML IV SCH ×2 (01:46→12:57)
[2020-09-17] MEDS: METOPROLOL TARTRATE 5 MG/5 ML VIAL IVPB SCH ×6 (02:27→21:49)
[2020-09-17 08:40] LABS: BASO % 0.3 % (0-2.0); HEMATOCRIT 22.4 % (32.4-45.2); HEMOGLOBIN 7.6 GM/dL (10.7-15.3); LYMPH % 2.2 % (8-40); MCH 27.4 pg (25.7-33.7); MCHC 34.1 g/dl (32.0-36.0); MEAN CELL VOLUME 80.3 fl (80-96); MEAN PLT VOLUME 9.3 fl (7.5-11.1); MONO % 4.8 % (3.8-10.2); NEUT % 92.7 % (42.8-82.8); PLATELET COUNT 248 K/MM3 (134-434); RBC 2.79 M/mm3 (3.60-5.2); RDW 15.8 % (11.6-15.6); WHITE BLOOD COUNT 24.5 K/mm3 (4.0-10.0)
[2020-09-17 09:01] LABS: POTASSIUM 3.7 mmol/L (3.5-5.1)
[2020-09-17 09:07] LABS: ALBUMIN 1.9 g/dl (3.4-5.0); CALCIUM 8.1 mg/dL (8.5-10.1)
[2020-09-17 09:08] LABS: MAGNESIUM 2.1 mg/dL (1.8-2.4)
[2020-09-17 09:11] LABS: CREATININE 5.4 mg/dL (0.55-1.3)
[2020-09-17 09:12] LABS: BILIRUBIN,TOTAL 0.8 mg/dL (0.2-1); TOT PROT 5.9 g/dl (6.4-8.2)
[2020-09-17 09:22] LABS: BLOOD UREA NITROGEN 121.1 mg/dL (7-18)
[2020-09-17] MEDS ORDERED: PT OWN MED DRAWER 7, Y5N ONE (09:47)
[2020-09-17] MEDS: PANTOPRAZOLE SODIUM 40 MG VIAL IVPUSH SCH (10:14)
[2020-09-17] MEDS: NIFEdipine E.R. 90 MG TABLET PO SCH (10:14)
[2020-09-17] MEDS: ZINC OXIDE 20% TOPICAL OINTMENT 30 GM TUBE TP SCH ×2 (10:15→21:45)
[2020-09-17 11:43] LABS: ANISOCYTOSIS 0; MACROCYTOSIS 0; PLATELET ESTIMATE NORMAL
[2020-09-17] MEDS ORDERED: DEXTROSE 5%-WATER - 50 ML IVPB ONE (12:55)
[2020-09-17] MEDS ORDERED: ceFAZolin SODIUM 1 GM VIAL ONE (12:55)
[2020-09-17] MEDS: CEFAZOLIN 1 GM in DEXTROSE 5%-WATER - 1 GM/50 ML IVPB IVPB SCH (12:56)
[2020-09-17] MEDS: MAG HYDROX/AL HYDROX/SIMETH 30 ML UNIT-DOSE CUP PO PRN (16:22)
[2020-09-17] MEDS: ACETAMINOPHEN 1000 MG/100 ML VIAL (NON FORMULARY) IVPB PRN (17:25)
[2020-09-17] MEDS ORDERED: SODIUM BICARBONATE 8.4% 50 MEQ/50 ML DISP.SYRIN IVPUSH SCH (18:45)
[2020-09-17] MEDS: SODIUM BICARBONATE 8.4% 50 MEQ/50 ML VIAL IVPUSH SCH (21:36)
[2020-09-17] MEDS: OLANZapine 5 MG TABLET PO SCH (21:45)
[2020-09-18] MEDS: SODIUM BICARBONATE 8.4% 50 MEQ/50 ML VIAL IVPUSH SCH ×2 (00:04→01:08)
[2020-09-18] MEDS: METOPROLOL TARTRATE 5 MG/5 ML VIAL IVPB SCH ×6 (02:14→21:30)
[2020-09-18] MEDS: AMINO ACIDS 4.25%/D5W 1,000 ML IV SCH ×2 (04:05→14:13)
[2020-09-18] MEDS ORDERED: SODIUM BICARBONATE 8.4% 50 MEQ/50 ML VIAL IVPUSH SCH (06:00)
[2020-09-18] MEDS ORDERED: DEXTROSE 5%-WATER - 50 ML IVPB ONE (09:17)
[2020-09-18] MEDS ORDERED: ceFAZolin SODIUM 1 GM VIAL ONE (09:17)
[2020-09-18] MEDS: PANTOPRAZOLE SODIUM 40 MG VIAL IVPUSH SCH (09:51)
[2020-09-18] MEDS: CEFAZOLIN 1 GM in DEXTROSE 5%-WATER - 1 GM/50 ML IVPB IVPB SCH (09:51)
[2020-09-18] MEDS: NIFEdipine E.R. 90 MG TABLET PO SCH (09:52)
[2020-09-18] MEDS: ZINC OXIDE 20% TOPICAL OINTMENT 30 GM TUBE TP SCH ×2 (09:52→21:31)
[2020-09-18 10:36] LABS: BASO % 0.1 % (0-2.0); EOS % 0.5 % (0-4.5); HEMATOCRIT 21.1 % (32.4-45.2); LYMPH % 5.6 % (8-40); MCH 26.9 pg (25.7-33.7); MCHC 33.3 g/dl (32.0-36.0); MEAN CELL VOLUME 80.8 fl (80-96); MEAN PLT VOLUME 9.8 fl (7.5-11.1); MONO % 9.6 % (3.8-10.2); NEUT % 84.2 % (42.8-82.8); PLATELET COUNT 219 K/MM3 (134-434); RBC 2.62 M/mm3 (3.60-5.2); RDW 16.2 % (11.6-15.6); WHITE BLOOD COUNT 13.6 K/mm3 (4.0-10.0)
[2020-09-18 11:11] LABS: ALBUMIN 1.7 g/dl (3.4-5.0)
[2020-09-18 11:14] LABS: CREATININE 5.3 mg/dL (0.55-1.3)
[2020-09-18 11:15] LABS: BILIRUBIN,TOTAL 0.7 mg/dL (0.2-1); TOT PROT 5.4 g/dl (6.4-8.2)
[2020-09-18 11:20] LABS: POTASSIUM 3.5 mmol/L (3.5-5.1)
[2020-09-18 11:57] LABS: BLOOD UREA NITROGEN 128.9 mg/dL (7-18)
[2020-09-18] MEDS: MAG HYDROX/AL HYDROX/SIMETH 30 ML UNIT-DOSE CUP PO PRN (14:56)
[2020-09-18] MEDS: OLANZapine 5 MG TABLET PO SCH (21:31)
[2020-09-19] MEDS: METOPROLOL TARTRATE 5 MG/5 ML VIAL IVPB SCH ×6 (02:15→21:28)
[2020-09-19] MEDS: AMINO ACIDS 4.25%/D5W 1,000 ML IV SCH ×2 (05:24→15:30)
[2020-09-19] MEDS ORDERED: DEXTROSE 5%-WATER - 50 ML IVPB ONE (09:18)
[2020-09-19] MEDS ORDERED: ceFAZolin SODIUM 1 GM VIAL ONE (09:18)
[2020-09-19] MEDS: CEFAZOLIN 1 GM in DEXTROSE 5%-WATER - 1 GM/50 ML IVPB IVPB SCH (09:25)
[2020-09-19] MEDS: PANTOPRAZOLE SODIUM 40 MG VIAL IVPUSH SCH (09:25)
[2020-09-19] MEDS: ZINC OXIDE 20% TOPICAL OINTMENT 30 GM TUBE TP SCH ×2 (09:27→21:28)
[2020-09-19] MEDS: NIFEdipine E.R. 90 MG TABLET PO SCH (09:27)
[2020-09-19 09:28] LABS: HEMATOCRIT 20.3 % (32.4-45.2); MCH 27.4 pg (25.7-33.7); MCHC 34.3 g/dl (32.0-36.0); MEAN CELL VOLUME 79.8 fl (80-96); MEAN PLT VOLUME 9.5 fl (7.5-11.1); PLATELET COUNT 204 K/MM3 (134-434); RBC 2.54 M/mm3 (3.60-5.2); RDW 16.1 % (11.6-15.6); WHITE BLOOD COUNT 11.3 K/mm3 (4.0-10.0)
[2020-09-19 09:45] LABS: CHLORIDE 110 mmol/L (98-107); POTASSIUM 3.4 mmol/L (3.5-5.1); SODIUM 136 mmol/L (136-145)
[2020-09-19 09:50] LABS: CALCIUM 7.7 mg/dL (8.5-10.1); GLUCOSE,RANDOM 120 mg/dL (74-106)
[2020-09-19 09:51] LABS: ALBUMIN 1.7 g/dl (3.4-5.0); ANION GAP 12 MMOL/L (8-16); CO2 14 mmol/L (21-32)
[2020-09-19 09:53] LABS: CREATININE 5.3 mg/dL (0.55-1.3)
[2020-09-19 09:54] LABS: SGOT/AST 12 U/L (15-37); SGPT/ALT < 6 U/L (13-61)
[2020-09-19 09:55] LABS: BILIRUBIN,TOTAL 0.7 mg/dL (0.2-1); TOT PROT 5.5 g/dl (6.4-8.2)
[2020-09-19 09:57] LABS: ALK PHOS 72 U/L (45-117)
[2020-09-19 10:21] LABS: BLOOD UREA NITROGEN 136.9 mg/dL (7-18)
[2020-09-19 11:20] LABS: IRON SERUM 22 ug/dL (50-175)
[2020-09-19 11:21] LABS: TOTAL IRON BINDING CAPACITY 157 ug/dL (250-450)
[2020-09-19] MEDS ORDERED: IRON SUCROSE INJECTION 200 MG in SODIUM CHLORIDE 90 ML IVPB ONE (14:15)
[2020-09-19] MEDS: SODIUM BICARBONATE 8.4% - 50 MEQ in DEXTROSE 5%-WATER - 1,000 ML IV SCH (17:12)
[2020-09-19] MEDS: KCL 10 MEQ IVPB 10 MEQ/100 ML INFUS.BAG IVPB SCH ×3 (17:13→21:09)
[2020-09-19] MEDS: OLANZapine 5 MG TABLET PO SCH (21:29)
[2020-09-20] MEDS: METOPROLOL TARTRATE 5 MG/5 ML VIAL IVPB SCH ×6 (02:09→23:38)
[2020-09-20] MEDS ORDERED: ceFAZolin SODIUM 1 GM VIAL ONE (09:07)
[2020-09-20] MEDS ORDERED: DEXTROSE 5%-WATER - 50 ML IVPB ONE (09:07)
[2020-09-20] MEDS: PANTOPRAZOLE SODIUM 40 MG VIAL IVPUSH SCH (09:24)
[2020-09-20] MEDS: CEFAZOLIN 1 GM in DEXTROSE 5%-WATER - 1 GM/50 ML IVPB IVPB SCH (09:24)
[2020-09-20] MEDS: NIFEdipine E.R. 90 MG TABLET PO SCH (09:25)
[2020-09-20 09:44] LABS: POTASSIUM 3.4 mmol/L (3.5-5.1)
[2020-09-20 09:54] LABS: CALCIUM 8.4 mg/dL (8.5-10.1)
[2020-09-20 09:55] LABS: ALBUMIN 1.9 g/dl (3.4-5.0)
[2020-09-20 09:58] LABS: CREATININE 5.1 mg/dL (0.55-1.3)
[2020-09-20 09:59] LABS: BILIRUBIN,TOTAL 0.4 mg/dL (0.2-1); TOT PROT 6.4 g/dl (6.4-8.2)
[2020-09-20 10:04] LABS: BLOOD UREA NITROGEN 133.2 mg/dL (7-18)
[2020-09-20] MEDS ORDERED: PT OWN MED DRAWER 7, Y5N ONE ×2 (12:29→18:50)
[2020-09-20] MEDS: ZINC OXIDE 20% TOPICAL OINTMENT 30 GM TUBE TP SCH ×2 (14:03→22:01)
[2020-09-20] MEDS: SODIUM BICARBONATE 8.4% - 50 MEQ in DEXTROSE 5%-WATER - 1,000 ML IV SCH (14:25)
[2020-09-20] MEDS: KCL 10 MEQ IVPB 10 MEQ/100 ML INFUS.BAG IVPB SCH ×3 (15:41→22:00)
[2020-09-20] MEDS: ACETAMINOPHEN 1000 MG/100 ML VIAL (NON FORMULARY) IVPB PRN (18:27)
[2020-09-20] MEDS: OLANZapine 5 MG TABLET PO SCH ×2 (22:01→22:07)
[2020-09-21] MEDS: METOPROLOL TARTRATE 5 MG/5 ML VIAL IVPB SCH ×6 (03:35→22:55)
[2020-09-21 10:01] LABS: CHLORIDE 115 mmol/L (98-107); SODIUM 143 mmol/L (136-145)
[2020-09-21] MEDS ORDERED: PT OWN MED DRAWER 7, Y5N ONE (10:05)
[2020-09-21] MEDS ORDERED: ceFAZolin SODIUM 1 GM VIAL ONE (10:06)
[2020-09-21] MEDS ORDERED: DEXTROSE 5%-WATER - 50 ML IVPB ONE (10:06)
[2020-09-21 10:09] LABS: ALBUMIN 1.8 g/dl (3.4-5.0); ANION GAP 8 MMOL/L (8-16); CO2 20 mmol/L (21-32)
[2020-09-21 10:10] LABS: GLUCOSE,RANDOM 115 mg/dL (74-106); MAGNESIUM 1.9 mg/dL (1.8-2.4)
[2020-09-21 10:12] LABS: CREATININE 4.9 mg/dL (0.55-1.3); SGOT/AST 12 U/L (15-37)
[2020-09-21 10:13] LABS: BILIRUBIN,TOTAL 0.3 mg/dL (0.2-1); TOT PROT 5.6 g/dl (6.4-8.2)
[2020-09-21 10:14] LABS: ALK PHOS 85 U/L (45-117); SGPT/ALT < 6 U/L (13-61)
[2020-09-21 10:24] LABS: BLOOD UREA NITROGEN 114.3 mg/dL (7-18)
[2020-09-21] MEDS: CEFAZOLIN 1 GM in DEXTROSE 5%-WATER - 1 GM/50 ML IVPB IVPB SCH (10:50)
[2020-09-21] MEDS: PANTOPRAZOLE SODIUM 40 MG VIAL IVPUSH SCH (10:50)
[2020-09-21] MEDS: NIFEdipine E.R. 90 MG TABLET PO SCH ×2 (10:53→11:29)
[2020-09-21] MEDS: SODIUM BICARBONATE 8.4% - 50 MEQ in DEXTROSE 5%-WATER - 1,000 ML IV SCH (10:53)
[2020-09-21] MEDS: ZINC OXIDE 20% TOPICAL OINTMENT 30 GM TUBE TP SCH ×2 (11:04→21:35)
[2020-09-21] MEDS: MAG HYDROX/AL HYDROX/SIMETH 30 ML UNIT-DOSE CUP PO PRN (17:02)
[2020-09-21] MEDS: ACETAMINOPHEN 1000 MG/100 ML VIAL (NON FORMULARY) IVPB PRN (18:00)
[2020-09-21] MEDS: OLANZapine 5 MG TABLET PO SCH (21:35)
[2020-09-22] MEDS: METOPROLOL TARTRATE 5 MG/5 ML VIAL IVPB SCH ×6 (04:13→23:11)
[2020-09-22 10:25] LABS: BASO % 0.3 % (0-2.0); EOS % 1.2 % (0-4.5); HEMATOCRIT 23.9 % (32.4-45.2); HEMOGLOBIN 8.1 GM/dL (10.7-15.3); LYMPH % 10.3 % (8-40); MCH 26.7 pg (25.7-33.7); MCHC 33.8 g/dl (32.0-36.0); MEAN CELL VOLUME 78.8 fl (80-96); MEAN PLT VOLUME 9.2 fl (7.5-11.1); MONO % 8.9 % (3.8-10.2); NEUT % 79.3 % (42.8-82.8); PLATELET COUNT 317 K/MM3 (134-434); RBC 3.03 M/mm3 (3.60-5.2); RDW 16.2 % (11.6-15.6); WHITE BLOOD COUNT 13.1 K/mm3 (4.0-10.0)
[2020-09-22 10:39] LABS: INR 1.13 (0.83-1.09); PROTHROMBIN TIME (PATIENT) 13.6 SEC (9.7-13.0)
[2020-09-22 11:03] LABS: ALBUMIN 2.1 g/dl (3.4-5.0); CALCIUM 8.2 mg/dL (8.5-10.1)
[2020-09-22 11:07] LABS: CREATININE 4.7 mg/dL (0.55-1.3)
[2020-09-22 11:08] LABS: BILIRUBIN,TOTAL 0.4 mg/dL (0.2-1); TOT PROT 6.7 g/dl (6.4-8.2)
[2020-09-22 11:10] LABS: POTASSIUM 3.7 mmol/L (3.5-5.1)
[2020-09-22] MEDS ORDERED: PT OWN MED DRAWER 7, Y5N ONE (11:20)
[2020-09-22] MEDS ORDERED: ceFAZolin SODIUM 1 GM VIAL ONE (11:20)
[2020-09-22] MEDS ORDERED: DEXTROSE 5%-WATER - 50 ML IVPB ONE (11:20)
[2020-09-22] MEDS: CEFAZOLIN 1 GM in DEXTROSE 5%-WATER - 1 GM/50 ML IVPB IVPB SCH (11:24)
[2020-09-22] MEDS: NIFEdipine E.R. 90 MG TABLET PO SCH (11:25)
[2020-09-22] MEDS: PANTOPRAZOLE SODIUM 40 MG VIAL IVPUSH SCH (11:25)
[2020-09-22] MEDS: ZINC OXIDE 20% TOPICAL OINTMENT 30 GM TUBE TP SCH ×2 (13:17→23:33)
[2020-09-22] MEDS: SODIUM BICARBONATE 8.4% - 50 MEQ in DEXTROSE 5%-WATER - 1,000 ML IV SCH (13:24)
[2020-09-22] MEDS: AMINO ACIDS 4.25%/D5W 1,000 ML IV SCH (14:25)
[2020-09-22] MEDS: OLANZapine 5 MG TABLET PO SCH (21:50)
[2020-09-23] MEDS: METOPROLOL TARTRATE 5 MG/5 ML VIAL IVPB SCH ×7 (03:33→22:22)
[2020-09-23] MEDS ORDERED: ceFAZolin SODIUM 1 GM VIAL ONE ×2 (10:01→12:06)
[2020-09-23] MEDS ORDERED: DEXTROSE 5%-WATER - 50 ML IVPB ONE ×2 (10:01→12:06)
[2020-09-23] MEDS: PANTOPRAZOLE SODIUM 40 MG VIAL IVPUSH SCH (10:13)
[2020-09-23] MEDS: NIFEdipine E.R. 90 MG TABLET PO SCH (10:26)
[2020-09-23] MEDS: AMINO ACIDS 4.25%/D5W 1,000 ML IV SCH ×3 (11:04→18:37)
[2020-09-23] MEDS: CEFAZOLIN 1 GM in DEXTROSE 5%-WATER - 1 GM/50 ML IVPB IVPB SCH (11:15)
[2020-09-23] MEDS: ZINC OXIDE 20% TOPICAL OINTMENT 30 GM TUBE TP SCH ×2 (14:35→23:35)
[2020-09-23] MEDS: ACETAMINOPHEN 1000 MG/100 ML VIAL (NON FORMULARY) IVPB PRN (17:29)
[2020-09-23] MEDS: LORazepam 2 MG/ML SDV VIAL IVPUSH PRN (21:26)
[2020-09-23] MEDS: OLANZapine 5 MG TABLET PO SCH (21:53)
[2020-09-24] MEDS: METOPROLOL TARTRATE 5 MG/5 ML VIAL IVPB SCH ×6 (01:48→21:38)
[2020-09-24] MEDS: AMINO ACIDS 4.25%/D5W 1,000 ML IV SCH ×2 (05:25→21:38)
[2020-09-24] MEDS ORDERED: DEXTROSE 5%-WATER - 50 ML IVPB ONE (09:05)
[2020-09-24] MEDS ORDERED: ceFAZolin SODIUM 1 GM VIAL ONE (09:05)
[2020-09-24] MEDS: CEFAZOLIN 1 GM in DEXTROSE 5%-WATER - 1 GM/50 ML IVPB IVPB SCH (09:14)
[2020-09-24] MEDS: NIFEdipine E.R. 90 MG TABLET PO SCH (09:14)
[2020-09-24 09:45] LABS: CHLORIDE 111 mmol/L (98-107); POTASSIUM 3.7 mmol/L (3.5-5.1); SODIUM 141 mmol/L (136-145)
[2020-09-24 10:08] LABS: CALCIUM 7.6 mg/dL (8.5-10.1)
[2020-09-24 10:09] LABS: ALBUMIN 1.9 g/dl (3.4-5.0); ANION GAP 11 MMOL/L (8-16); BLOOD UREA NITROGEN 92.6 mg/dL (7-18); CO2 19 mmol/L (21-32); GLUCOSE,RANDOM 115 mg/dL (74-106); MAGNESIUM 1.8 mg/dL (1.8-2.4)
[2020-09-24 10:11] LABS: CREATININE 4.2 mg/dL (0.55-1.3)
[2020-09-24 10:13] LABS: BILIRUBIN,TOTAL 0.3 mg/dL (0.2-1); SGOT/AST 11 U/L (15-37); TOT PROT 6.3 g/dl (6.4-8.2)
[2020-09-24 10:14] LABS: ALK PHOS 97 U/L (45-117)
[2020-09-24] MEDS: ZINC OXIDE 20% TOPICAL OINTMENT 30 GM TUBE TP SCH ×2 (10:15→21:38)
[2020-09-24] MEDS: PANTOPRAZOLE SODIUM 40 MG VIAL IVPUSH SCH (10:15)
[2020-09-24 10:16] LABS: SGPT/ALT < 6 U/L (13-61)
[2020-09-24] MEDS ORDERED: POTASSIUM PHOSPHATE 15 MM in DEXTROSE 5%-WATER - 250 ML IVPB ONE (15:15)
[2020-09-24] MEDS: OLANZapine 5 MG TABLET PO SCH (21:38)
[2020-09-24] MEDS: LORazepam 2 MG/ML SDV VIAL IVPUSH PRN (23:22)
[2020-09-25] MEDS: METOPROLOL TARTRATE 5 MG/5 ML VIAL IVPB SCH ×6 (01:46→21:15)
[2020-09-25] MEDS: AMINO ACIDS 4.25%/D5W 1,000 ML IV SCH ×4 (02:43→23:51)
[2020-09-25 08:50] LABS: BASO % 0.2 % (0-2.0); EOS % 2.4 % (0-4.5); HEMATOCRIT 20.3 % (32.4-45.2); LYMPH % 11.5 % (8-40); MCH 27.1 pg (25.7-33.7); MEAN CELL VOLUME 79.6 fl (80-96); MEAN PLT VOLUME 8.6 fl (7.5-11.1); MONO % 8.2 % (3.8-10.2); NEUT % 77.7 % (42.8-82.8); PLATELET COUNT 405 K/MM3 (134-434); RBC 2.55 M/mm3 (3.60-5.2); RDW 16.3 % (11.6-15.6)
[2020-09-25 09:06] LABS: CHLORIDE 110 mmol/L (98-107); POTASSIUM 3.8 mmol/L (3.5-5.1); SODIUM 138 mmol/L (136-145)
[2020-09-25 09:07] LABS: HEMOGLOBIN 6.9 GM/dL (10.7-15.3)
[2020-09-25 09:15] LABS: ALBUMIN 1.7 g/dl (3.4-5.0); CALCIUM 7.8 mg/dL (8.5-10.1)
[2020-09-25 09:16] LABS: ANION GAP 9 MMOL/L (8-16); BLOOD UREA NITROGEN 92.5 mg/dL (7-18); CO2 19 mmol/L (21-32); GLUCOSE,RANDOM 138 mg/dL (74-106)
[2020-09-25] MEDS ORDERED: DEXTROSE 5%-WATER - 50 ML IVPB ONE (09:16)
[2020-09-25] MEDS ORDERED: ceFAZolin SODIUM 1 GM VIAL ONE (09:16)
[2020-09-25 09:18] LABS: SGOT/AST 12 U/L (15-37)
[2020-09-25 09:19] LABS: BILIRUBIN,TOTAL 0.2 mg/dL (0.2-1)
[2020-09-25 09:20] LABS: TOT PROT 5.7 g/dl (6.4-8.2)
[2020-09-25 09:21] LABS: ALK PHOS 91 U/L (45-117)
[2020-09-25] MEDS: CEFAZOLIN 1 GM in DEXTROSE 5%-WATER - 1 GM/50 ML IVPB IVPB SCH (09:21)
[2020-09-25] MEDS: PANTOPRAZOLE SODIUM 40 MG VIAL IVPUSH SCH (09:21)
[2020-09-25] MEDS: NIFEdipine E.R. 90 MG TABLET PO SCH (09:21)
[2020-09-25] MEDS: ZINC OXIDE 20% TOPICAL OINTMENT 30 GM TUBE TP SCH ×2 (09:21→21:14)
[2020-09-25 09:46] LABS: SGPT/ALT < 6 U/L (13-61)
[2020-09-25] MEDS: MAG HYDROX/AL HYDROX/SIMETH 30 ML UNIT-DOSE CUP PO PRN (17:53)
[2020-09-25] MEDS: OLANZapine 5 MG TABLET PO SCH (21:15)
[2020-09-25] MEDS: LORazepam 2 MG/ML SDV VIAL IVPUSH PRN (21:19)
[2020-09-26] MEDS: METOPROLOL TARTRATE 5 MG/5 ML VIAL IVPB SCH ×6 (01:36→22:18)
[2020-09-26] MEDS: NIFEdipine E.R. 90 MG TABLET PO SCH (09:36)
[2020-09-26] MEDS ORDERED: ceFAZolin SODIUM 1 GM VIAL ONE (09:38)
[2020-09-26] MEDS ORDERED: DEXTROSE 5%-WATER - 50 ML IVPB ONE (09:39)
[2020-09-26 09:47] LABS: BASO % 0.3 % (0-2.0); EOS % 1.5 % (0-4.5); HEMATOCRIT 21.3 % (32.4-45.2); HEMOGLOBIN 7.2 GM/dL (10.7-15.3); LYMPH % 9.1 % (8-40); MCHC 33.9 g/dl (32.0-36.0); MEAN CELL VOLUME 79.7 fl (80-96); MEAN PLT VOLUME 8.2 fl (7.5-11.1); MONO % 6.5 % (3.8-10.2); NEUT % 82.6 % (42.8-82.8); PLATELET COUNT 522 K/MM3 (134-434); RBC 2.67 M/mm3 (3.60-5.2); RDW 16.4 % (11.6-15.6); WHITE BLOOD COUNT 18.7 K/mm3 (4.0-10.0)
[2020-09-26 10:07] LABS: CHLORIDE 113 mmol/L (98-107); POTASSIUM 3.9 mmol/L (3.5-5.1); SODIUM 140 mmol/L (136-145)
[2020-09-26 10:13] LABS: BLOOD UREA NITROGEN 94.8 mg/dL (7-18)
[2020-09-26 10:15] LABS: ANION GAP 8 MMOL/L (8-16); CALCIUM 8.3 mg/dL (8.5-10.1); CO2 19 mmol/L (21-32); CREATININE 3.9 mg/dL (0.55-1.3); GLUCOSE,RANDOM 121 mg/dL (74-106); SGOT/AST 10 U/L (15-37)
[2020-09-26 10:16] LABS: TOT PROT 6.4 g/dl (6.4-8.2)
[2020-09-26 10:18] LABS: ALK PHOS 100 U/L (45-117)
[2020-09-26 10:19] LABS: BILIRUBIN,TOTAL 0.7 mg/dL (0.2-1); SGPT/ALT < 6 U/L (13-61)
[2020-09-26] MEDS: CEFAZOLIN 1 GM in DEXTROSE 5%-WATER - 1 GM/50 ML IVPB IVPB SCH (10:19)
[2020-09-26] MEDS: ZINC OXIDE 20% TOPICAL OINTMENT 30 GM TUBE TP SCH ×2 (10:19→22:23)
[2020-09-26] MEDS: PANTOPRAZOLE SODIUM 40 MG VIAL IVPUSH SCH (10:19)
[2020-09-26] MEDS: AMINO ACIDS 4.25%/D5W 1,000 ML IV SCH (15:03)
[2020-09-26] MEDS: ACETAMINOPHEN 1000 MG/100 ML VIAL (NON FORMULARY) IVPB PRN (22:00)
[2020-09-26] MEDS: OLANZapine 5 MG TABLET PO SCH (22:23)
[2020-09-27] MEDS: METOPROLOL TARTRATE 5 MG/5 ML VIAL IVPB SCH ×6 (02:15→22:22)
[2020-09-27] MEDS: AMINO ACIDS 4.25%/D5W 1,000 ML IV SCH ×2 (05:35→18:54)
[2020-09-27 10:01] LABS: BASO % 0.1 % (0-2.0); EOS % 1.1 % (0-4.5); HEMATOCRIT 20.2 % (32.4-45.2); LYMPH % 8.7 % (8-40); MCHC 33.8 g/dl (32.0-36.0); MEAN CELL VOLUME 79.7 fl (80-96); MEAN PLT VOLUME 8.2 fl (7.5-11.1); NEUT % 84.1 % (42.8-82.8); PLATELET COUNT 526 K/MM3 (134-434); RBC 2.54 M/mm3 (3.60-5.2); RDW 16.5 % (11.6-15.6); WHITE BLOOD COUNT 24.3 K/mm3 (4.0-10.0)
[2020-09-27 10:10] LABS: HEMOGLOBIN 6.8 GM/dL (10.7-15.3)
[2020-09-27 10:21] LABS: CHLORIDE 113 mmol/L (98-107); POTASSIUM 3.4 mmol/L (3.5-5.1); SODIUM 139 mmol/L (136-145)
[2020-09-27 10:23] LABS: ALBUMIN 1.8 g/dl (3.4-5.0); ANION GAP 9 MMOL/L (8-16); BLOOD UREA NITROGEN 103.3 mg/dL (7-18); CO2 17 mmol/L (21-32)
[2020-09-27 10:24] LABS: GLUCOSE,RANDOM 99 mg/dL (74-106)
[2020-09-27] MEDS ORDERED: DEXTROSE 5%-WATER - 50 ML IVPB ONE (10:24)
[2020-09-27] MEDS ORDERED: ceFAZolin SODIUM 1 GM VIAL ONE (10:24)
[2020-09-27 10:26] LABS: SGPT/ALT < 6 U/L (13-61)
[2020-09-27] MEDS: PANTOPRAZOLE SODIUM 40 MG VIAL IVPUSH SCH (10:26)
[2020-09-27 10:27] LABS: CREATININE 3.9 mg/dL (0.55-1.3); SGOT/AST 10 U/L (15-37)
[2020-09-27 10:28] LABS: BILIRUBIN,TOTAL 0.2 mg/dL (0.2-1); TOT PROT 5.9 g/dl (6.4-8.2)
[2020-09-27] MEDS: NIFEdipine E.R. 90 MG TABLET PO SCH (10:28)
[2020-09-27 10:29] LABS: ALK PHOS 90 U/L (45-117)
[2020-09-27 10:33] LABS: CALCIUM 8.2 mg/dL (8.5-10.1)
[2020-09-27] MEDS: CEFAZOLIN 1 GM in DEXTROSE 5%-WATER - 1 GM/50 ML IVPB IVPB SCH (11:30)
[2020-09-27] MEDS: ZINC OXIDE 20% TOPICAL OINTMENT 30 GM TUBE TP SCH ×2 (11:30→21:33)
[2020-09-27] MEDS ORDERED: LORazepam 2 MG/ML SDV VIAL IVPUSH PRN (11:37)
[2020-09-27 12:32] LABS: ANISOCYTOSIS 1+; MACROCYTOSIS 0; PLATELET ESTIMATE INCREASED; TEAR DROP CELLS 1+; TOXIC GRANULATION 2+
[2020-09-27] MEDS: KCL 10 MEQ IVPB 10 MEQ/100 ML INFUS.BAG IVPB SCH ×3 (15:04→18:53)
[2020-09-27] MEDS: OLANZapine 5 MG TABLET PO SCH (21:33)
[2020-09-27] MEDS ORDERED: FAT EMULSION/OLIVE/SOY (CLINOLIPID) 250 ML EMULSION IV SCH (22:00)
[2020-09-27] MEDS: FAT EMULSION/OLIVE/SOY/PHOSPHO 250 ML IV SCH (22:05)
[2020-09-28] MEDS: METOPROLOL TARTRATE 5 MG/5 ML VIAL IVPB SCH ×6 (02:36→22:54)
[2020-09-28] MEDS: AMINO ACIDS 4.25%/D5W 1,000 ML IV SCH ×2 (03:11→11:22)
[2020-09-28] MEDS ORDERED: IRON SUCROSE INJECTION 200 MG in SODIUM CHLORIDE 90 ML IVPB ONE (09:00)
[2020-09-28] MEDS ORDERED: ceFAZolin SODIUM 1 GM VIAL ONE (10:24)
[2020-09-28] MEDS ORDERED: DEXTROSE 5%-WATER - 50 ML IVPB ONE (10:25)
[2020-09-28] MEDS ORDERED: PT OWN MED DRAWER 7, Y5N ONE (10:26)
[2020-09-28 10:33] LABS: BASO % 0.3 % (0-2.0); EOS % 1.6 % (0-4.5); HEMATOCRIT 18.1 % (32.4-45.2); LYMPH % 5.4 % (8-40); MCH 27.5 pg (25.7-33.7); MCHC 34.6 g/dl (32.0-36.0); MEAN CELL VOLUME 79.3 fl (80-96); MEAN PLT VOLUME 7.9 fl (7.5-11.1); NEUT % 85.7 % (42.8-82.8); PLATELET COUNT 518 K/MM3 (134-434); RBC 2.28 M/mm3 (3.60-5.2); RDW 16.9 % (11.6-15.6); RETICULOCYTES 1.85 % (0.5-1.5); WHITE BLOOD COUNT 17.1 K/mm3 (4.0-10.0)
[2020-09-28] MEDS: PANTOPRAZOLE SODIUM 40 MG VIAL IVPUSH SCH (10:39)
[2020-09-28 10:43] LABS: CHLORIDE 118 mmol/L (98-107); POTASSIUM 3.7 mmol/L (3.5-5.1); SODIUM 143 mmol/L (136-145)
[2020-09-28 10:46] LABS: ALBUMIN 1.8 g/dl (3.4-5.0); ANION GAP 10 MMOL/L (8-16); BLOOD UREA NITROGEN 96.9 mg/dL (7-18); CALCIUM 8.4 mg/dL (8.5-10.1); CO2 15 mmol/L (21-32); GLUCOSE,RANDOM 121 mg/dL (74-106); MAGNESIUM 1.8 mg/dL (1.8-2.4)
[2020-09-28] MEDS: CEFAZOLIN 1 GM in DEXTROSE 5%-WATER - 1 GM/50 ML IVPB IVPB SCH (10:48)
[2020-09-28 10:49] LABS: CREATININE 3.8 mg/dL (0.55-1.3); PHOSPHOROUS 2.4 mg/dL (2.5-4.9); SGOT/AST 7 U/L (15-37)
[2020-09-28 10:51] LABS: BILIRUBIN,TOTAL 0.4 mg/dL (0.2-1); TOT PROT 5.7 g/dl (6.4-8.2)
[2020-09-28 10:52] LABS: ALK PHOS 89 U/L (45-117); SGPT/ALT < 6 U/L (13-61)
[2020-09-28] MEDS: NIFEdipine E.R. 90 MG TABLET PO SCH (11:02)
[2020-09-28] MEDS: ZINC OXIDE 20% TOPICAL OINTMENT 30 GM TUBE TP SCH ×2 (11:03→22:56)
[2020-09-28 11:11] LABS: HEMOGLOBIN 6.3 GM/dL (10.7-15.3)
[2020-09-28] MEDS: POTASSIUM CHLORIDE 10 MEQ in AMINO ACIDS 4.25%/D5W 1,000 ML IV SCH (19:33)
[2020-09-28] MEDS: OLANZapine 5 MG TABLET PO SCH (22:56)
[2020-09-28] MEDS: FAT EMULSION/OLIVE/SOY/PHOSPHO 250 ML IV SCH (23:00)
[2020-09-29 02:11] LABS: RDW 17.6 % (11.6-15.6)
[2020-09-29 02:49] LABS: HEMATOCRIT 22.8 % (32.4-45.2); MCH 28.7 pg (25.7-33.7); MEAN CELL VOLUME 81.9 fl (80-96); MEAN PLT VOLUME 8.1 fl (7.5-11.1); PLATELET COUNT 523 K/MM3 (134-434); RBC 2.79 M/mm3 (3.60-5.2); WHITE BLOOD COUNT 16.6 K/mm3 (4.0-10.0)
[2020-09-29] MEDS: METOPROLOL TARTRATE 5 MG/5 ML VIAL IVPB SCH ×6 (02:49→22:31)
[2020-09-29] MEDS: ACETAMINOPHEN 1000 MG/100 ML VIAL (NON FORMULARY) IVPB PRN (02:58)
[2020-09-29] MEDS: SODIUM BICARBONATE 8.4% 50 MEQ/50 ML DISP.SYRIN IVPUSH SCH ×2 (03:33→09:51)
[2020-09-29] MEDS: NIFEdipine E.R. 90 MG TABLET PO SCH (09:10)
[2020-09-29 09:12] LABS: POTASSIUM 3.5 mmol/L (3.5-5.1)
[2020-09-29] MEDS ORDERED: ceFAZolin SODIUM 1 GM VIAL ONE (09:12)
[2020-09-29] MEDS ORDERED: DEXTROSE 5%-WATER - 50 ML IVPB ONE (09:12)
[2020-09-29] MEDS: CEFAZOLIN 1 GM in DEXTROSE 5%-WATER - 1 GM/50 ML IVPB IVPB SCH (09:14)
[2020-09-29 09:17] LABS: BASO % 0.3 % (0-2.0); EOS % 1.5 % (0-4.5); HEMATOCRIT 23.5 % (32.4-45.2); HEMOGLOBIN 8.2 GM/dL (10.7-15.3); LYMPH % 10.3 % (8-40); MCH 28.6 pg (25.7-33.7); MCHC 34.7 g/dl (32.0-36.0); MEAN CELL VOLUME 82.2 fl (80-96); MEAN PLT VOLUME 8.2 fl (7.5-11.1); MONO % 9.8 % (3.8-10.2); NEUT % 78.1 % (42.8-82.8); PLATELET COUNT 586 K/MM3 (134-434); RBC 2.86 M/mm3 (3.60-5.2); RDW 17.8 % (11.6-15.6); WHITE BLOOD COUNT 16.2 K/mm3 (4.0-10.0)
[2020-09-29 09:20] LABS: CALCIUM 8.3 mg/dL (8.5-10.1)
[2020-09-29 09:22] LABS: BLOOD UREA NITROGEN 97.4 mg/dL (7-18)
[2020-09-29 09:25] LABS: CREATININE 3.9 mg/dL (0.55-1.3)
[2020-09-29] MEDS: POTASSIUM CHLORIDE 10 MEQ in AMINO ACIDS 4.25%/D5W 1,000 ML IV SCH ×2 (09:57→21:29)
[2020-09-29] MEDS: PANTOPRAZOLE SODIUM 40 MG VIAL IVPUSH SCH (09:57)
[2020-09-29] MEDS: ZINC OXIDE 20% TOPICAL OINTMENT 30 GM TUBE TP SCH ×2 (09:58→21:36)
[2020-09-29] MEDS ORDERED: PHYTONADIONE 10 MG/1 ML AMP IVPB ONE (11:43)
[2020-09-29] MEDS: OLANZapine 5 MG TABLET PO SCH (21:37)
[2020-09-30] MEDS: METOPROLOL TARTRATE 5 MG/5 ML VIAL IVPB SCH ×6 (03:01→22:06)
[2020-09-30] MEDS ORDERED: PT OWN MED DRAWER 7, Y5N ONE (05:12)
[2020-09-30] MEDS ORDERED: DEXTROSE 5%-WATER - 50 ML IVPB ONE (08:54)
[2020-09-30] MEDS ORDERED: ceFAZolin SODIUM 1 GM VIAL ONE (08:54)
[2020-09-30] MEDS: CEFAZOLIN 1 GM in DEXTROSE 5%-WATER - 1 GM/50 ML IVPB IVPB SCH (09:42)
[2020-09-30] MEDS: NIFEdipine E.R. 90 MG TABLET PO SCH (09:42)
[2020-09-30] MEDS: PANTOPRAZOLE SODIUM 40 MG VIAL IVPUSH SCH (10:01)
[2020-09-30 11:27] LABS: BASO % 0.3 % (0-2.0); EOS % 0.2 % (0-4.5); HEMOGLOBIN 9.4 GM/dL (10.7-15.3); LYMPH % 3.9 % (8-40); MCH 27.5 pg (25.7-33.7); MCHC 33.6 g/dl (32.0-36.0); MEAN PLT VOLUME 8.5 fl (7.5-11.1); MONO % 5.7 % (3.8-10.2); NEUT % 89.9 % (42.8-82.8); PLATELET COUNT 616 K/MM3 (134-434); RBC 3.41 M/mm3 (3.60-5.2); RDW 17.8 % (11.6-15.6); WHITE BLOOD COUNT 20.8 K/mm3 (4.0-10.0)
[2020-09-30 11:36] LABS: INR 1.08 (0.83-1.09); PROTHROMBIN TIME (PATIENT) 13.3 SEC (9.7-13.0)
[2020-09-30 11:46] LABS: POTASSIUM 4.1 mmol/L (3.5-5.1)
[2020-09-30 11:50] LABS: BLOOD UREA NITROGEN 94.2 mg/dL (7-18); CALCIUM 9.3 mg/dL (8.5-10.1)
[2020-09-30 11:57] LABS: CREATININE 3.9 mg/dL (0.55-1.3)
[2020-09-30] MEDS: ZINC OXIDE 20% TOPICAL OINTMENT 30 GM TUBE TP SCH ×2 (12:00→21:50)
[2020-09-30 12:05] LABS: ANISOCYTOSIS 3+; MACROCYTOSIS 0; PLATELET ESTIMATE INCREASED; TARGET CELLS 1+
[2020-09-30] MEDS: POTASSIUM CHLORIDE 10 MEQ in AMINO ACIDS 4.25%/D5W 1,000 ML IV SCH ×2 (12:35→23:11)
[2020-09-30] MEDS ORDERED: LORazepam 2 MG/ML SDV VIAL IVPUSH PRN (12:39)
[2020-09-30] MEDS ORDERED: VANCOMYCIN 250 MG/5 ML ORAL SOLUTION PO ONE (13:05)
[2020-09-30] MEDS: OLANZapine 5 MG TABLET PO SCH (21:51)
[2020-10-01] MEDS: POTASSIUM CHLORIDE 10 MEQ in AMINO ACIDS 4.25%/D5W 1,000 ML IV SCH ×2 (01:28→17:14)
[2020-10-01] MEDS: METOPROLOL TARTRATE 5 MG/5 ML VIAL IVPB SCH ×6 (02:15→22:34)
[2020-10-01] MEDS ORDERED: DEXTROSE 5%-WATER - 50 ML IVPB ONE (09:14)
[2020-10-01] MEDS ORDERED: ceFAZolin SODIUM 1 GM VIAL ONE (09:14)
[2020-10-01] MEDS: CEFAZOLIN 1 GM in DEXTROSE 5%-WATER - 1 GM/50 ML IVPB IVPB SCH (10:02)
[2020-10-01] MEDS: ZINC OXIDE 20% TOPICAL OINTMENT 30 GM TUBE TP SCH ×2 (10:02→22:35)
[2020-10-01] MEDS: PANTOPRAZOLE SODIUM 40 MG VIAL IVPUSH SCH (10:02)
[2020-10-01] MEDS: NIFEdipine E.R. 90 MG TABLET PO SCH (10:02)
[2020-10-01 10:07] LABS: INR 1.13 (0.83-1.09); PROTHROMBIN TIME (PATIENT) 13.6 SEC (9.7-13.0)
[2020-10-01] MEDS ORDERED: CEFAZOLIN 1 GM/D5W 1 GM/50 ML BAG ONE (15:15)
[2020-10-01] MEDS ORDERED: ceFAZolin SODIUM 1 GM VIAL IVPB ONE (15:19)
[2020-10-01] MEDS ORDERED: LIDOCAINE HCL 1%, 10 MG/ML (50 mL VIAL) INF ONE (15:35)
[2020-10-01] MEDS: OLANZapine 5 MG TABLET PO SCH (22:34)
[2020-10-02] MEDS: METOPROLOL TARTRATE 5 MG/5 ML VIAL IVPB SCH ×3 (02:28→10:11)
[2020-10-02] MEDS ORDERED: DEXTROSE 5%-WATER - 50 ML IVPB ONE (08:44)
[2020-10-02] MEDS ORDERED: ceFAZolin SODIUM 1 GM VIAL ONE (08:44)
[2020-10-02] MEDS: CEFAZOLIN 1 GM in DEXTROSE 5%-WATER - 1 GM/50 ML IVPB IVPB SCH (08:59)
[2020-10-02] MEDS: NIFEdipine E.R. 90 MG TABLET PO SCH (10:12)
[2020-10-02] MEDS: PANTOPRAZOLE SODIUM 40 MG VIAL IVPUSH SCH (10:12)
[2020-10-02] MEDS: ZINC OXIDE 20% TOPICAL OINTMENT 30 GM TUBE TP SCH ×2 (10:12→22:40)
[2020-10-02 12:15] LABS: BASO % 0.3 % (0-2.0); EOS % 1.2 % (0-4.5); HEMATOCRIT 24.7 % (32.4-45.2); HEMOGLOBIN 8.4 GM/dL (10.7-15.3); LYMPH % 8.3 % (8-40); MCHC 33.8 g/dl (32.0-36.0); MEAN CELL VOLUME 82.7 fl (80-96); MEAN PLT VOLUME 8.3 fl (7.5-11.1); NEUT % 81.2 % (42.8-82.8); PLATELET COUNT 517 K/MM3 (134-434); RBC 2.99 M/mm3 (3.60-5.2); RDW 18.2 % (11.6-15.6); WHITE BLOOD COUNT 16.3 K/mm3 (4.0-10.0)
[2020-10-02 12:45] LABS: POTASSIUM 3.6 mmol/L (3.5-5.1)
[2020-10-02 12:48] LABS: CALCIUM 8.5 mg/dL (8.5-10.1)
[2020-10-02 12:49] LABS: BLOOD UREA NITROGEN 89.3 mg/dL (7-18)
[2020-10-02 12:52] LABS: CREATININE 3.9 mg/dL (0.55-1.3)
[2020-10-02] MEDS ORDERED: SODIUM CHLORIDE 0.45% 1,000 ML IV SCH (13:45)
[2020-10-02 15:08] LABS: PH,URINE 5.5 (5.0-8.0); URINE APPEARANCE Slightly Cloudy; URINE BILIRUBIN Negative (NEGATIVE); URINE COLOR Yellow; URINE GLUCOSE (UA) Negative (NEGATIVE); URINE KETONE Negative (NEGATIVE); URINE LEUK ESTERASE 3+ (NEGATIVE); URINE NITRITE Negative (NEGATIVE); URINE PROTEIN 1+ (NEGATIVE); URINE UROBILINOGEN 0.2 mg/dL (0.2-1.0)
[2020-10-02 15:33] LABS: EPI CELLS 6.1 /uL (0-25.1); HYALINE CASTS 5.39 /uL (0-3.1); URINE BACTERIA 185.4 /uL (0-1359); URINE RBC 65.3 /uL (0-23.9); URINE WBC 3065.2 /uL (0-25.8)
[2020-10-02 15:34] LABS: YEAST PRESENT (NEGATIVE)
[2020-10-02] MEDS: ACETAMINOPHEN 650 MG/20.3 ML ORAL SOLUTION (CUPS) GT PRN (16:38)
[2020-10-02] MEDS: VANCOMYCIN 250 MG/5 ML ORAL SOLUTION GT SCH (18:35)
[2020-10-02] MEDS ORDERED: PT OWN MED DRAWER 7, Y5N ONE (18:39)
[2020-10-02] MEDS: OLANZapine 5 MG TABLET PO SCH (22:39)
[2020-10-02] MEDS: METOPROLOL TARTRATE 25 MG TABLET (FP) GT SCH (22:39)
[2020-10-03] MEDS: VANCOMYCIN 250 MG/5 ML ORAL SOLUTION GT SCH ×4 (00:32→17:11)
[2020-10-03] MEDS ORDERED: ceFAZolin SODIUM 1 GM VIAL ONE (10:06)
[2020-10-03] MEDS ORDERED: DEXTROSE 5%-WATER - 50 ML IVPB ONE (10:06)
[2020-10-03] MEDS: ZINC OXIDE 20% TOPICAL OINTMENT 30 GM TUBE TP SCH ×2 (10:14→22:04)
[2020-10-03] MEDS: NIFEdipine E.R. 90 MG TABLET PO SCH (10:14)
[2020-10-03] MEDS: ACETAMINOPHEN 650 MG/20.3 ML ORAL SOLUTION (CUPS) GT PRN (10:14)
[2020-10-03] MEDS: CEFAZOLIN 1 GM in DEXTROSE 5%-WATER - 1 GM/50 ML IVPB IVPB SCH (10:14)
[2020-10-03] MEDS: PANTOPRAZOLE SODIUM 40 MG VIAL IVPUSH SCH (10:14)
[2020-10-03] MEDS: METOPROLOL TARTRATE 25 MG TABLET (FP) GT SCH ×2 (10:14→22:04)
[2020-10-03] MEDS ORDERED: LORazepam 0.5 MG TABLET GT PRN (11:42)
[2020-10-03] MEDS ORDERED: SODIUM CHLORIDE 0.45% 1,000 ML IV SCH (14:15)
[2020-10-03] MEDS: OLANZapine 5 MG TABLET PO SCH (22:04)
[2020-10-04] MEDS: VANCOMYCIN 250 MG/5 ML ORAL SOLUTION GT SCH ×4 (00:36→17:29)
[2020-10-04] MEDS ORDERED: ceFAZolin SODIUM 1 GM VIAL ONE (09:32)
[2020-10-04] MEDS ORDERED: DEXTROSE 5%-WATER - 50 ML IVPB ONE (09:32)
[2020-10-04] MEDS ORDERED: PT OWN MED DRAWER 7, Y5N ONE ×2 (09:32→10:36)
[2020-10-04] MEDS: METOPROLOL TARTRATE 25 MG TABLET (FP) GT SCH ×2 (09:34→22:06)
[2020-10-04] MEDS: NIFEdipine E.R. 90 MG TABLET PO SCH (09:34)
[2020-10-04] MEDS: CEFAZOLIN 1 GM in DEXTROSE 5%-WATER - 1 GM/50 ML IVPB IVPB SCH (09:35)
[2020-10-04] MEDS: FAMOTIDINE 40 MG/5 ML ORAL SUSPENSION PEG SCH (09:35)
[2020-10-04] MEDS: ZINC OXIDE 20% TOPICAL OINTMENT 30 GM TUBE TP SCH ×2 (09:35→22:06)
[2020-10-04] MEDS: ACETAMINOPHEN 650 MG/20.3 ML ORAL SOLUTION (CUPS) GT PRN (17:51)
[2020-10-04] MEDS: OLANZapine 5 MG TABLET PO SCH (22:06)
[2020-10-05] MEDS: VANCOMYCIN 250 MG/5 ML ORAL SOLUTION GT SCH ×4 (00:24→18:01)
[2020-10-05] MEDS ORDERED: PT OWN MED DRAWER 7, Y5N ONE (11:05)
[2020-10-05] MEDS ORDERED: ceFAZolin SODIUM 1 GM VIAL ONE (11:05)
[2020-10-05] MEDS ORDERED: DEXTROSE 5%-WATER - 50 ML IVPB ONE (11:06)
[2020-10-05] MEDS: CEFAZOLIN 1 GM in DEXTROSE 5%-WATER - 1 GM/50 ML IVPB IVPB SCH (11:12)
[2020-10-05] MEDS: NIFEdipine E.R. 90 MG TABLET PO SCH (11:13)
[2020-10-05] MEDS: METOPROLOL TARTRATE 25 MG TABLET (FP) GT SCH ×2 (11:13→21:24)
[2020-10-05] MEDS: FAMOTIDINE 40 MG/5 ML ORAL SUSPENSION PEG SCH (11:13)
[2020-10-05] MEDS: ZINC OXIDE 20% TOPICAL OINTMENT 30 GM TUBE TP SCH ×2 (11:14→21:24)
[2020-10-05 11:18] LABS: CHLORIDE 119 mmol/L (98-107); POTASSIUM 4.6 mmol/L (3.5-5.1); SODIUM 146 mmol/L (136-145)
[2020-10-05 11:23] LABS: ALBUMIN 1.9 g/dl (3.4-5.0); ANION GAP 8 MMOL/L (8-16); BLOOD UREA NITROGEN 84.9 mg/dL (7-18); CALCIUM 8.5 mg/dL (8.5-10.1); CO2 20 mmol/L (21-32); GLUCOSE,RANDOM 136 mg/dL (74-106)
[2020-10-05 11:25] LABS: CREATININE 3.3 mg/dL (0.55-1.3)
[2020-10-05 11:27] LABS: BILIRUBIN,TOTAL 0.2 mg/dL (0.2-1); SGOT/AST 7 U/L (15-37)
[2020-10-05 11:31] LABS: ALK PHOS 139 U/L (45-117); SGPT/ALT < 6 U/L (13-61)
[2020-10-05 12:35] LABS: BASO % 0.4 % (0-2.0); EOS % 1.9 % (0-4.5); HEMATOCRIT 24.6 % (32.4-45.2); HEMOGLOBIN 8.2 GM/dL (10.7-15.3); LYMPH % 11.6 % (8-40); MCH 27.5 pg (25.7-33.7); MCHC 33.3 g/dl (32.0-36.0); MEAN CELL VOLUME 82.8 fl (80-96); MEAN PLT VOLUME 8.6 fl (7.5-11.1); MONO % 7.5 % (3.8-10.2); NEUT % 78.6 % (42.8-82.8); PLATELET COUNT 510 K/MM3 (134-434); RBC 2.98 M/mm3 (3.60-5.2); RDW 19.1 % (11.6-15.6); WHITE BLOOD COUNT 21.7 K/mm3 (4.0-10.0)
[2020-10-05 13:25] LABS: ANISOCYTOSIS 2+; MACROCYTOSIS 0; PLATELET ESTIMATE INCREASED; TARGET CELLS 1+
[2020-10-05 14:14] LABS: HIV INTERPRETATION NEGATIVE (NEGATIVE)
[2020-10-05] MEDS ORDERED: SODIUM CHLORIDE 0.45% 1,000 ML IV SCH (16:30)
[2020-10-05] MEDS: OLANZapine 5 MG TABLET PO SCH (21:24)
[2020-10-06] MEDS: VANCOMYCIN 250 MG/5 ML ORAL SOLUTION GT SCH ×5 (00:40→23:20)
[2020-10-06] MEDS ORDERED: PT OWN MED DRAWER 7, Y5N ONE (10:00)
[2020-10-06] MEDS: METOPROLOL TARTRATE 25 MG TABLET (FP) GT SCH ×2 (10:04→21:55)
[2020-10-06] MEDS: ZINC OXIDE 20% TOPICAL OINTMENT 30 GM TUBE TP SCH ×2 (10:05→21:55)
[2020-10-06] MEDS: FAMOTIDINE 40 MG/5 ML ORAL SUSPENSION PEG SCH (10:05)
[2020-10-06] MEDS: NIFEdipine E.R. 90 MG TABLET PO SCH (10:05)
[2020-10-06 10:10] LABS: HEMATOCRIT 24.4 % (32.4-45.2); HEMOGLOBIN 8.3 GM/dL (10.7-15.3); MCH 27.9 pg (25.7-33.7); MEAN CELL VOLUME 82.1 fl (80-96); MEAN PLT VOLUME 8.3 fl (7.5-11.1); PLATELET COUNT 492 K/MM3 (134-434); RBC 2.97 M/mm3 (3.60-5.2); RDW 19.4 % (11.6-15.6); WHITE BLOOD COUNT 18.8 K/mm3 (4.0-10.0)
[2020-10-06] MEDS: OLANZapine 5 MG TABLET PO SCH (21:55)
[2020-10-07] MEDS: VANCOMYCIN 250 MG/5 ML ORAL SOLUTION GT SCH ×4 (05:10→23:50)
[2020-10-07] MEDS ORDERED: PT OWN MED DRAWER 7, Y5N ONE (09:21)
[2020-10-07 09:25] LABS: HEMATOCRIT 22.7 % (32.4-45.2); HEMOGLOBIN 7.5 GM/dL (10.7-15.3); MCH 27.4 pg (25.7-33.7); MCHC 32.9 g/dl (32.0-36.0); MEAN CELL VOLUME 83.1 fl (80-96); MEAN PLT VOLUME 8.7 fl (7.5-11.1); PLATELET COUNT 447 K/MM3 (134-434); RBC 2.73 M/mm3 (3.60-5.2); RDW 19.3 % (11.6-15.6); WHITE BLOOD COUNT 16.1 K/mm3 (4.0-10.0)
[2020-10-07] MEDS: NIFEdipine E.R. 90 MG TABLET PO SCH (09:29)
[2020-10-07] MEDS: METOPROLOL TARTRATE 25 MG TABLET (FP) GT SCH ×2 (09:29→22:19)
[2020-10-07] MEDS: FAMOTIDINE 40 MG/5 ML ORAL SUSPENSION PEG SCH (09:29)
[2020-10-07] MEDS: ZINC OXIDE 20% TOPICAL OINTMENT 30 GM TUBE TP SCH ×2 (09:30→22:19)
[2020-10-07 09:51] LABS: POTASSIUM 5.2 mmol/L (3.5-5.1)
[2020-10-07 09:53] LABS: BLOOD UREA NITROGEN 87.8 mg/dL (7-18); CALCIUM 8.6 mg/dL (8.5-10.1)
[2020-10-07 09:58] LABS: CREATININE 3.1 mg/dL (0.55-1.3)
[2020-10-07 13:07] LABS: HEP B CORE AB, TOT Positive (Negative)
[2020-10-07] MEDS ORDERED: SODIUM ZIRCONIUM CYCLOSILICATE (LOKELMA) 5 GM PACKET PO ONE (16:46)
[2020-10-07] MEDS: OLANZapine 5 MG TABLET PO SCH (22:19)
[2020-10-08 03:15] LABS: FIBROSIS SCORE. 0.15 (0.00-0.21); HCV ALPHA 2 MACRO CHART 171 mg/dL (110-276); NECRO.INFLAM ACT.SCORE 0.02 (0.00-0.17); NECROINFLAM. ACTIVITY GRADE A0-No activity (.)
[2020-10-08] MEDS: VANCOMYCIN 250 MG/5 ML ORAL SOLUTION GT SCH ×3 (05:21→17:19)
[2020-10-08] MEDS ORDERED: PT OWN MED DRAWER 7, Y5N ONE (09:47)
[2020-10-08] MEDS: NIFEdipine E.R. 90 MG TABLET PO SCH (10:02)
[2020-10-08] MEDS: METOPROLOL TARTRATE 25 MG TABLET (FP) GT SCH ×2 (10:06→21:22)
[2020-10-08] MEDS: FAMOTIDINE 40 MG/5 ML ORAL SUSPENSION PEG SCH (10:06)
[2020-10-08] MEDS: ZINC OXIDE 20% TOPICAL OINTMENT 30 GM TUBE TP SCH ×2 (10:07→21:23)
[2020-10-08 11:45] LABS: HEMOGLOBIN 7.4 GM/dL (10.7-15.3); MCH 27.7 pg (25.7-33.7); MCHC 33.4 g/dl (32.0-36.0); MEAN PLT VOLUME 8.5 fl (7.5-11.1); PLATELET COUNT 423 K/MM3 (134-434); RBC 2.66 M/mm3 (3.60-5.2); RDW 19.6 % (11.6-15.6); WHITE BLOOD COUNT 13.7 K/mm3 (4.0-10.0)
[2020-10-08 12:14] LABS: POTASSIUM 5.2 mmol/L (3.5-5.1)
[2020-10-08 12:17] LABS: CALCIUM 8.3 mg/dL (8.5-10.1)
[2020-10-08 12:18] LABS: BLOOD UREA NITROGEN 86.1 mg/dL (7-18)
[2020-10-08 12:21] LABS: CREATININE 3.1 mg/dL (0.55-1.3)
[2020-10-08] MEDS ORDERED: SODIUM ZIRCONIUM CYCLOSILICATE (LOKELMA) 5 GM PACKET PO SCH (16:15)
[2020-10-08 20:40] VITALS: BP 131/57; PULSE 90; TEMP 98.4
[2020-10-08] MEDS: OLANZapine 5 MG TABLET PO SCH (21:22)
== END 2020-10-08 22:15 | DRG 469 ==
LOC: JER 13:32 → JERBED 15:35 → J6WEST-2 08-30 20:45 → J5S 09-13 22:26
PROVIDERS: ADMIT Internal Medicine Pulmonary Disease; ATTEND Internal Medicine
PROC: 05HB33Z Insertion of Infusion Device into Right Basilic Vein, Percutaneous Approach (ICD-10-PCS; principal; 2020-09-07)
PROC: B54MZZA Ultrasonography of Right Upper Extremity Veins, Guidance (ICD-10-PCS; 2020-09-07)
PROC: 30233N1 Transfusion of Nonautologous Red Blood Cells into Peripheral Vein, Percutaneous Approach (ICD-10-PCS; 2020-09-28)
PROC: 0DH63UZ Insertion of Feeding Device into Stomach, Percutaneous Approach (ICD-10-PCS; 2020-10-01)
PROC: 3E0G76Z Introduction of Nutritional Substance into Upper GI, Via Natural or Artificial Opening (ICD-10-PCS; 2020-10-01)
DX: N17.9 Acute kidney failure, unspecified (principal); E46 Unspecified protein-calorie malnutrition; A04.72 Enterocolitis due to Clostridium difficile, not specified as recurrent; R53.2 Functional quadriplegia; R78.81 Bacteremia; E87.0 Hyperosmolality and hypernatremia; E86.0 Dehydration; E11.22 Type 2 diabetes mellitus with diabetic chronic kidney disease; E87.2 Acidosis; E87.5 Hyperkalemia; B95.61 Methicillin susceptible Staphylococcus aureus infection as the cause of diseases classified elsewhere; I12.9 Hypertensive chronic kidney disease with stage 1 through stage 4 chronic kidney disease, or unspecified chronic kidney disease; N18.9 Chronic kidney disease, unspecified; H40.9 Unspecified glaucoma; R62.7 Adult failure to thrive; Z68.23 Body mass index [BMI] 23.0-23.9, adult; D64.9 Anemia, unspecified; F03.90 Unspecified dementia, unspecified severity, without behavioral disturbance, psychotic disturbance, mood disturbance, and anxiety; E78.5 Hyperlipidemia, unspecified; N39.0 Urinary tract infection, site not specified; B96.20 Unspecified Escherichia coli [E. coli] as the cause of diseases classified elsewhere
CPT/HCPCS: 36415; 36430; 36600; 70450-TC; 71045-TC-FY; 73523-TC-FY; 76775-TC; 80048; 80053; 80061; 81003; 82172; 82248; 82272; 82308; 82436; 82550; 82553; 82565; 82728; 82803; 82962; 82977; 83010; 83540; 83550; 83605; 83615; 83721; 83735; 83883; 84100; 84133; 84156; 84300; 84443; 84460; 84484; 85025; 85027; 85045; 85610; 85730; 86140; 86704; 86705; 86706; 86707; 86803; 86850; 86900; 86901; 86922; 87040; 87086; 87186; 87324; 87389; 87449; 87804; 93005; 93010; 93306-TC; 94640; 97162-GP; 99291; C9803; J0131; J1644; J1756; U0003